=== PATIENT | female | born 1960 | race Caucasian/White ===

== ENCOUNTER 2016-09-10 07:35 | Inpatient (IN) ==
--- NOTE | 2016-09-10 08:02 | PROVIDER DOCUMENTATION ---
HPI-Neurological Disorder - General Stated Complaint: AMS Time Seen by Provider: 09/10/16 07:44 Allergies/Adverse Reactions: Patient Allergies Allergy/AdvReac Type Severity Reaction Status Date / Time promethazine HCl * Allergy Intermediate HALLUCINATI Verified 01/09/16 18:05 [From Phenergan] ONS Home Medications: Home Medication List Medication Instructions Recorded Confirmed Last Taken Type Tizanidine HCl [Zanaflex] 4 mg PO TID 11/20/11 01/09/16 03/06/13 07:00 History Gabapentin [Neurontin] 600 mg PO 4XDAY #0 tablet 12/29/11 01/09/16 03/06/13 07: 00 Rx Metoprolol [Lopressor] 50 mg PO BID #60 tablet 01/25/12 01/09/16 03/06/13 07:00 Rx Multivit,Fe,Ca,FA & Min [Thera M 1 each PO DAILY #0 tablet 01/25/12 01/09/16 07:00 Rx Plus] Ondansetron Odt [Zofran Odt] 8 mg PO Q8H PRN PRN #10 tablet 03/30/12 01/09/16 Rx Clonazepam [Klonopin] 0.5 mg PO BID 02/01/13 01/09/16 03/06/13 07:00 History Cyanocobalamin (Vitamin B-12) 100 mcg PO DAILY 02/01/13 01/09/16 03/06/13 07:00 History [Vitamin B-12] Fentanyl 50 Microgm/Hr Patch 1 each TD Q72H 02/01/13 01/09/16 03/05/13 07:00 History [Duragesic 50 Microgm/Hr Patch] Lactulose 20 gm PO DAILY 02/01/13 01/09/16 03/06/13 07:00 History Lansoprazole [Prevacid] 40 mg PO DAILY 02/01/13 01/09/16 03/06/13 07:00 History Metoclopramide [Reglan] 10 mg PO AC + HS #60 tablet 02/04/13 01/09/16 03/06/13 07:00 Rx Nicotine Patch [Nicoderm Patch] 21 mg TD DAILY #1 patch.td24 02/04/13 01/09/16 03/02/13 09:00 Rx Sucralfate [Carafate] 1 gm PO Q6H #120 tablet 02/04/13 01/09/16 03/06/13 07:00 Rx Ciprofloxacin HCl [Cipro] 500 mg PO BID #20 tablet 03/06/13 01/09/16 Unknown Rx Oxycodone E.r. [Oxycontin] 10 mg PO Q12HR 03/06/13 01/09/16 03/06/13 07:00 History Phenazopyridine [Pyridium] 100 mg PO TID #9 tablet 03/06/13 01/09/16 Unknown Rx - History of Present Illness-Neuro Nature of Presenting Problem: Brought in by EMS, were called because boy friend had been trying unsuccessfully for sev hours to wake her up. EMS reports brief arrousal. She did not respond to needle from blood draw. She did awaken to fingernail pressure. Denies taking anything except just one of her pain pills. Context: reports: found unresponsive by family Character of Altered Mental Status: reports: decreased responsiveness Any recent trauma/injury?: reports: none Cognitive Baseline: alert, oriented x3 Gait Baseline: walks without assistance Similar Symptoms Previously?: No Recently seen or treated by another doctor?: Yes (seen by pain clinic on ~08/28) Review of Systems - Adult - REVIEW OF SYSTEMS - ADULT ROS:: unobtainable per condition Constitutional: reports: no symptoms reported Neurological: reports: see HPI Past History - Adult - PAST MEDICAL HISTORY-ADULT Review of Records: reports: Medications Reviewed (boyfriend does not know current meds "it's in the computer") Cardiovascular: reports: HTN Respiratory: reports: sleep apnea Gastrointestinal: reports: GERD Musculoskeletal: reports: other (chronic pain) - PRIOR SURGERIES/PROCEDURES Surgical/Procedure History: reports: cholecystectomy, other (2 PERFARATED ULCERS ) - IMMUNIZATION STATUS Childhood Immunizations: See Nurse Assessment Flu Vaccine: See Nurse Assessment Physical Exam- Neurological - Physical Exam-Neuro Initial Vital Signs Reviewed: Yes General Appearance: appears well, other (does not repond to needle stick, but does arouse to deep pain) Eye Exam: bilateral eye: PERRL (pupils dialated, but react), EOMI (Random) HENMT: moist mucous membranes, normal ENT inspection Head Injury: no evidence of injury Neck: full range of motion, supple Respiratory: lungs clear, normal breath sounds, no respiratory distress Cardiovascular: regular rate, rhythm, no edema, no murmur Abdominal Exam: non tender, soft Peripheral Pulses: radial (R): 4+, radial (L): 4+ Extremity: non-tender, normal inspection, no pedal edema cobbler sole Exam: normal speech (when she is arroused) Neurologic: other (somulent, but grossly intact when aroused) Integumentary: normal color, normal turgor, warm/dry Psych/Mental Status: other (knows is in hospital, and why, but "that's what he says") Progress - PLAN OF CARE/RESULTS Progress/Plan/Lab Results: Vital Signs - 8 hr 09/10/16 07:46 09/10/16 07:56 09/10/16 08:40 Temperature 97.6 F Pulse Rate 65 59 L 82 Respiratory Rate 12 13 13 Blood Pressure 115/80 115/80 81/65 O2 Sat by Pulse Oximetry 96 99 97 09/10/16 09:01 09/10/16 09:36 Temperature Pulse Rate 63 72 Respiratory Rate 12 14 Blood Pressure 93/76 113/74 O2 Sat by Pulse Oximetry 98 99 Laboratory Results - last 24 hr 09/10/16 09/10/16 09/10/16 07:54 07:54 07:54 WBC 8.18 RBC 4.29 Hgb 14.5 Hct 41.9 MCV 97.7 MCH 33.8 H MCHC 34.6 RDW Std Deviation 13.0 Plt Count 202 MPV 10.9 H Immature Gran % (Auto) 0.7 H Neut % (Auto) 70.5 Lymph % (Auto) 18.9 L [place] % (Auto) 7.1 Eos % (Auto) 2.4 Baso % (Auto) 0.4 Immature Gran # (Auto) 0.06 H Neut # (Auto) 5.76 Lymph # (Auto) 1.55 [place] # (Auto) 0.58 Eos # (Auto) 0.20 Baso # (Auto) 0.03 Sodium 139 Potassium 2.9 L Chloride 98 Carbon Dioxide 29 Anion Gap 12 BUN 16 Creatinine 1.4 H Estimated GFR/1.73 m2 39 BUN/Creatinine Ratio 11 Glucose 105 H Calculated Osmolality 279 Calcium 10.0 Total Bilirubin 0.41 AST 20 ALT 18 Alkaline Phosphatase 88 Total Protein 7.0 Albumin 3.8 Globulin 3.2 Albumin/Globulin Ratio 1.2 Urine Source Urine Color Urine Turbidity Urine pH Ur Specific [place] Urine Protein Ur Glucose (Stick) Ur Ketones (Stick) Urine Blood Urine Nitrite Urine Bilirubin Urobilinogen Dipstick Urine Leukocytes Urine WBC (Auto) Urine RBC (Auto) U Epithel Cells (Auto) Urine Bacteria (Auto) Urine Crystals Small Round Cells Urine Casts Urine Yeast-like Cells Salicylates < 3.00 L Urine Opiates Screen Ur Oxycodone Screen Ur Methadone, Qual Acetaminophen < 1.2 L Ur Barbiturates Screen Ur Phencyclidine Scrn Ur Amphetamines Screen U Benzodiazepines Scrn Urine Cocaine Screen U Cannabinoids Screen Plasma/Serum Ethyl Alc 09/10/16 09/10/16 08:18 08:18 WBC RBC Hgb Hct MCV MCH MCHC RDW Std Deviation Plt Count MPV Immature Gran % (Auto) Neut % (Auto) Lymph % (Auto) [place] % (Auto) Eos % (Auto) Baso % (Auto) Immature Gran # (Auto) Neut # (Auto) Lymph # (Auto) [place] # (Auto) Eos # (Auto) Baso # (Auto) Sodium Potassium Chloride Carbon Dioxide Anion Gap BUN Creatinine Estimated GFR/1.73 m2 BUN/Creatinine Ratio Glucose Calculated Osmolality Calcium Total Bilirubin AST ALT Alkaline Phosphatase Total Protein Albumin Globulin Albumin/Globulin Ratio Urine Source CATH Urine Color YELLOW Urine Turbidity HAZY Urine pH 5.5 Ur Specific [place] 1.025 Urine Protein 50 A Ur Glucose (Stick) NEGATIVE Ur Ketones (Stick) TRACE A Urine Blood NEGATIVE Urine Nitrite NEGATIVE Urine Bilirubin NEGATIVE Urobilinogen Dipstick NORMAL Urine Leukocytes NEGATIVE Urine WBC (Auto) <10 Urine RBC (Auto) <10 U Epithel Cells (Auto) <10 Urine Bacteria (Auto) NEGATIVE Urine Crystals NONE SEEN Small Round Cells NONE SEEN Urine Casts GRANULAR PRESENT Urine Yeast-like Cells NONE SEEN Salicylates Urine Opiates Screen PRESUMPTIVE POSITIVE A Ur Oxycodone Screen NONE DETECTED Ur Methadone, Qual NONE DETECTED Acetaminophen Ur Barbiturates Screen NONE DETECTED Ur Phencyclidine Scrn NONE DETECTED Ur Amphetamines Screen NONE DETECTED U Benzodiazepines Scrn NONE DETECTED Urine Cocaine Screen NONE DETECTED U Cannabinoids Screen NONE DETECTED Plasma/Serum Ethyl Alc Orders Category Date Time Status Cardiac Monitoring DIRECTED Care 09/10/16 08:24 Active Finger Stick Blood Sugar (ED) DIRECTED Care 09/10/16 08:24 Active Saline Loc DIRECTED Care 09/10/16 08:24 Active ACETAMINOPHEN [TDM] Stat Lab 09/10/16 07:54 Completed ALCOHOL BLOOD Stat Lab 09/10/16 07:54 Completed AMMONIA [CHEM] Stat Lab 09/10/16 09:04 Received CBC WITH ELECTRONIC DIFF [HEME] Stat Lab 09/10/16 07:54 Completed COMPREHENSIVE METABOLIC PANEL [CHEM] Stat Lab 09/10/16 07:54 Completed SALICYLATES [TDM] Stat Lab 09/10/16 07:54 Completed URINALYSIS [URINALYSIS] Stat Lab 09/10/16 08:18 Completed URINE DRUG SCREEN Stat Lab 09/10/16 08:18 Completed URINE MANUAL MICROSCOPIC [URINALYSIS] Stat Lab 09/10/16 08:18 Completed 0.9% Sodium Chloride Inj [Ns] 1,000 ml Med 09/10/16 08:57 Discontinued .ROUTE As Directed 0.9% Sodium Chloride Inj [Ns] 1,000 ml Med 09/10/16 09:19 Active IV 200 mls/hr 0.9% Sodium Chloride Inj [Ns] 1,000 ml Med 09/10/16 09:19 Active IV 999 mls/hr Pulse Oximetry Stat Oth 09/10/16 08:24 Active EKG [EKG] Stat Ther 09/10/16 08:24 Ordered Result Diagrams: 09/10/16 07:54 09/10/16 07:54 - REASSESSMENT Reassessment #1 Time Reassessed: 09:57 (pt still asleep) - CONSULTS/PCP/HOSPITALIST Notification #1 *Consult/PCP/Hospitalist*: [place] Time Discussed: 09:59 Consult Disposition: Will see in ED, Admit Departure - Departure Date of Disposition Decision: 09/10/16 Time of Disposition Decision: 09:57 DIAGNOSIS: Overuse of medication, Hypokalemia Disposition: ADMITTED INPATIENT 09 Certified Medical Emergency: Emergent Condition: Fair - Critical Care Note This patient required my direct & personal management of CC.: No
[2016-09-10 08:26] LABS: URINE SOURCE CATH
[2016-09-10 08:33] LABS: MANUAL DIFF NEEDED? NO
[2016-09-10 08:35] LABS: BILIRUBIN URINE NEGATIVE (NEGATIVE); BLOOD URINE NEGATIVE (NEGATIVE); COLOR YELLOW; GLUCOSE URINE NEGATIVE (NEGATIVE); LEUKOCYTES URINE NEGATIVE (NEGATIVE); NITRITE URINE NEGATIVE (NEGATIVE); PH URINE 5.5; PROTEIN URINE 50 mg/dL (NEGATIVE); SP GRAVITY URINE 1.025; TURBIDITY URINE HAZY (CLEAR); URINE MICRO REVIEW NEEDED? YES; UROBILINOGEN URINE NORMAL (NORMAL)
[2016-09-10 08:35] LABS: BASO% 0.4 % (0.0-0.8); EOS% 2.4 % (0.0-10.0); HEMATOCRIT 41.9 % (37.0-47.0); HEMOGLOBIN 14.5 g/dL (12.0-16.0); IMM GRAN# 0.06 X1000 (0.0-0.04); IMM GRAN% 0.7 % (0.0-0.5); LYMPH# 1.55 X1000 (1.2-3.4); LYMPH% 18.9 % (20.5-51.1); MCH 33.8 PG (27-31); MCHC 34.6 g/dL (33-37); MCV 97.7 FL (81-99); MONO# 0.58 X1000 (0.11-0.59); MONO% 7.1 % (1.7-9.3); MPV 10.9 FL (7.4-10.4); NEUT% 70.5 % (42.2-75.2); PLT 202 X1000 (130-400); RBC 4.29 XMIL (4.2-5.4)
[2016-09-10 08:37] LABS: UR EPITHELIAL CELLS <10 /HPF (<10); URINE BACTERIA NEGATIVE /HPF; URINE RBC <10 /HPF (<10); URINE WBC <10 /HPF (<10)
[2016-09-10 08:44] LABS: UR AMPHETAMINES QUAL NONE DETECTED (NONE DETECT); UR BARBITUATES QUAL NONE DETECTED (NONE DETECT); UR BENZODIAZEPIN QUAL NONE DETECTED (NONE DETECT); UR CANNABINOIDS QUAL NONE DETECTED (NONE DETECT); UR COCAINE QUAL NONE DETECTED (NONE DETECT); UR METHADONE QUAL NONE DETECTED (NONE DETECT); UR OPIATES QUAL PRESUMPTIVE POSITIVE (NONE DETECT); UR OXYCODONE QUAL NONE DETECTED (NONE DETECT); UR PCP QUAL NONE DETECTED (NONE DETECT)
[2016-09-10 08:52] LABS: URINE CASTS GRANULAR PRESENT; URINE CRYSTALS NONE SEEN; URINE SMALL ROUND CELLS NONE SEEN
[2016-09-10 08:55] LABS: AGAP 12; ALBUMIN 3.8 g/dL (3.5-5.0); ALKALINE PHOSPHATASE 88 U/L (32-104); BUN 16 mg/dL (8-22); CHLORIDE 98 mmol/L (98-107); COSMO 279; GOT 20 U/L (10-30); GPT 18 U/L (10-36); POTASSIUM 2.9 mmol/L (3.5-5.1); SODIUM 139 mmol/L (136-145); TCO2 29 mmol/L (25-35); TOTAL BILIRUBIN 0.41 mg/dL (0.20-1.00)
[2016-09-10] MEDS ORDERED: NS 2,000 ML ONE (08:57)
[2016-09-10] MEDS ORDERED: NS 1,000 ML IV ONE ×2 (09:19)
[2016-09-10 09:24] LABS: ACETAMINOPHEN < 1.2 ug/mL (10-30)
[2016-09-10] MEDS ORDERED: POTASSIUM CHLORIDE 40 MEQ/SWI 40 MEQ/100 ML IVPB IV ONE (10:02)
[2016-09-10] MEDS: POTASSIUM CHLORIDE 20 MEQ/SWI 20 MEQ/100 ML IVPB IV SCH ×2 (10:15→12:30)
[2016-09-10 11:03] LABS: ALLEN TEST NO; BLOOD TYPE ARTERIAL; DRAW SITE R BRACHIAL; METHB 0.7 % (0.0-1.5); O2(CT) 16.7 mL/dL (15.0-23.0); PCO2(98.6) 39 mmHg (35-45); PO2(98.6) 98 mmHg (60-100); SAMPLE BLOOD; SAO2 99.5 % (95.0-100.0); THB 12.4 g/dL (11.5-17.4); pH(98.6) 7.45 (7.35-7.45)
[2016-09-10 11:04] LABS: MODALITY ROOM AIR
--- NOTE | 2016-09-10 11:40 | Diag Imaging Result Doc PS360 ---
EXAM: HEAD W/O CONTRAST HISTORY: obtunded TECHNIQUE: CT of the head without contrast with reduced dose (clarity.) COMMENT: There are two acquisitions due to patient motion. There is no evidence of bleed or abnormal extra-axial fluid collection. There are some patchy areas of abnormal lucency in the white matter both hemispheres indicating chronic microvascular disease. Considering the artifactual limitations of the current study there has been no appreciable change since 04/17/2010. IMPRESSION: Limited study due to patient motion. No gross abnormality. Electronically signed by Fam Robertson 09/10/2016 11:38 AM
[2016-09-10 12:11] LABS: UR CREAT RANDOM 130.7 mg/dL (11-20)
--- NOTE | 2016-09-10 12:14 | Diag Imaging Result Doc PS360 ---
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 No additional abnormalities are present and considering differences in technique there is been no significant change. IMPRESSION: Stable chest. Electronically signed by Fam Robertson 09/10/2016 12:12 PM
[2016-09-10 12:28] LABS: MAGNESIUM 1.7 mg/dL (1.5-2.7)
[2016-09-10] MEDS: ZOFRAN IV PRN ×2 (15:07→19:37)
[2016-09-10] MEDS: NS 1,000 ML IV SCH ×2 (15:07→19:53)
[2016-09-10] MEDS ORDERED: MORPHINE IV PRN (16:05)
--- NOTE | 2016-09-10 16:08 | HISTORY AND PHYSICAL ---
PRIMARY CARE PHYSICIAN: JAYESH Dc CHIEF COMPLAINT: Altered mental status. HISTORY OF PRESENT ILLNESS: Ms. Pete is a 56-year-old female with a history of chronic pain, longstanding narcotic therapy, questionable cirrhosis of the liver per report, nicotine dependence, hypertension, GERD, peptic ulcer disease, who presents from home after being found obtunded by her . The patient is unable to give a history right now secondary to neuro status. Apparently, she has been in her normal state of health. She was started on a new muscle relaxer earlier this week by her pain doctor. She apparently took some medication around 1 or 2 o'clock this morning and when her woke up and tried to wake her up, he could not. She was somnolent and minimally responsive. He then called an ambulance which brought her to our ER. In the ER, she had multiple labs and diagnostics done. These did not show anything acute. Head CT while limited due to artifact did not show anything acute. On physical exam, the patient is minimally responsive to painful stimuli. Again, she has been in her normal state of health with the exception of starting a new medication for back pain. Her vitals are stable, but given her mental status, we are going to have to put her in the unit for observation. PAST MEDICAL HISTORY: 1. COPD. 2. Liver disease, specificity unknown. 3. Nicotine dependence. 4. Chronic back pain, on long-standing narcotic therapy. 5. Anxiety and depression. 6. History of gastric outlet obstruction. 7. Peptic ulcer disease. SURGICAL HISTORY: She has had a partial gastrectomy secondary to gastric outlet obstruction and adhesions. She has had a cholecystectomy. FAMILY HISTORY: Noncontributory. SOCIAL HISTORY: Patient is not legally , but she and her boyfriend at the bedside have been together for 15 years. She has 2 children from a previous relationship. She smokes around half a pack a day. She denies that she drinks any alcohol or uses illicit substances or abuses her medications. ALLERGIES: Promethazine. HOME MEDICATIONS: Norvasc 5 mg daily, baclofen 10 mg b.i.d. clonidine 0.1 mg daily, Neurontin 600 mg p.o. 4 times a day, [place] as needed for pain, lactulose 20 g p.o. daily, Prilosec 40 mg daily, Zofran 8 mg every 8 hours as needed, valsartan/hydrochlorothiazide 1 p.o. daily. REVIEW OF SYSTEMS: Unable to obtain. PHYSICAL EXAMINATION: VITAL SIGNS: Blood pressure is 105/74, heart rate 64, respiratory rate 96, O2 saturation 98% on room air, respiratory rate 18, temperature is 97.6 degrees. GENERAL: This is a chronically ill and disheveled-appearing, 56-year-old female, lying in hospital bed obtunded. NEUROLOGIC: The patient is minimally responsive to painful stimulus and overall she is appended. HEENT: Head is atraumatic and normocephalic. Her pupils are equal and round, but sluggish to light response. Oral mucosa is a bit dry. Trachea is midline. No JVD. CHEST: Clear to auscultation bilaterally. CARDIOVASCULAR: Regular S1-S2 is noted. No murmurs. GI: Soft, nondistended. Bowel sounds are positive. EXTREMITIES: Without edema, clubbing or cyanosis. Pulses are palpable bilaterally. DIAGNOSTIC DATA: Head CT, motion artifact, nothing acute. WBC 8.18. Hemoglobin 14.5, hematocrit 41.9, platelet count is 202,000. ABG on room air, pH 7.45, CO2 39, O2 98, bicarb 27.2, base excess is 3, lactate 0.4. Sodium 139, potassium 2.9, chloride 98, CO2 29, anion gap 12, BUN 16, creatinine 1.4, glucose 105. LFTs within normal limits. Albumin 3.8. TSH 0.87. Urine does not show anything acute. Toxicology is positive for opiates. Everything else is negative. ASSESSMENT AND PLAN: 1. Toxic encephalopathy: This is likely secondary to medication effect. Head CT does not show anything acute. There is no objective data to point to any specific metabolic derangement. Given her history of chronic pain medication use and new muscle relaxer started earlier this week, this is likely the cause of her encephalopathy. However, given her somnolence, we are going to need to put her in the unit to monitor her airway closely. We are going to check a chest x-ray and check labs in the morning. If she wakes up and all tests are negative, by tomorrow, she likely be able to go home. 2. Hypokalemia: We will check a magnesium and phosphorus and replace appropriately. 3. Acute kidney injury: Likely prerenal on top of angiotensin receptor rubina use. We will check urine studies and hydrate. 4. Chronic obstructive pulmonary disease: She does not seem to be in exacerbation, but we are going to check a chest x-ray. Add p.r.n. nebulizers. 5. Hypertension we will treat with p.r.n. medications as needed. 6. Nicotine dependence: We have added a nicotine patch and we will speak to the patient more about nicotine cessation once she is more alert. 7. Chronic liver disease: Likely cirrhosis, but we do not have this diagnosis for sure. We are going to hold off on her lactulose for now. Her ammonia is stable. 8. Deep venous thrombosis prophylaxis with Lovenox. Further recommendations to follow. Dictated by JAYESH Oliva for Adam Nina MD cc: JAYESH Oliva MD
[2016-09-10] MEDS ORDERED: SODIUM CHLORIDE 0.9% INJ SCH (16:15)
[2016-09-10] MEDS: PROTONIX IV SCH (17:02)
[2016-09-10] MEDS: CARAFATE LIQUID PO SCH (20:10)
[2016-09-11] MEDS: ZOFRAN IV PRN (01:42)
[2016-09-11] MEDS: CARAFATE LIQUID PO SCH ×5 (01:44→20:46)
[2016-09-11] MEDS: NS 1,000 ML IV SCH ×3 (03:45→20:38)
--- NOTE | 2016-09-11 05:42 | EKG Report ---
Test Performed on : 09/10/2016 07:33:15 AM Test Reason : Suspected Overdose Blood Pressure : / mmHG Vent. Rate : 056 BPM Atrial Rate : 056 BPM P-R Int : 198 ms QRS Dur : 102 ms QT Int : 488 ms P-R-T Axes : 063 020 057 degrees QTc Int : 470 ms Sinus bradycardia. with sinus arrhythmia. Otherwise normal ECG When compared with ECG of 09-JAN-2016 22:20, Vent. rate has decreased BY 29 BPM Unconfirmed Result
[2016-09-11 07:24] LABS: HEMATOCRIT 42.2 % (37.0-47.0); HEMOGLOBIN 14.6 g/dL (12.0-16.0); MCH 33.1 PG (27-31); MCHC 34.6 g/dL (33-37); MCV 95.7 FL (81-99); MPV 11.3 FL (7.4-10.4); RBC 4.41 XMIL (4.2-5.4)
[2016-09-11 07:51] LABS: AGAP 17; BUN 7 mg/dL (8-22); CALCIUM 8.9 mg/dL (8.8-10.2); CHLORIDE 100 mmol/L (98-107); COSMO 277; POTASSIUM 3.1 mmol/L (3.5-5.1); SODIUM 140 mmol/L (136-145); TCO2 23 mmol/L (25-35)
--- NOTE | 2016-09-11 13:09 | PROGRESS NOTE ---
DATE: 09/11/2016 SUBJECTIVE: Today, Ms. Pete refers to be doing fine. She is very, very paranoid. Any time you ask her questions she will ask you why you are asking her that and she will be giving different answers for the questions. OBJECTIVE: Vital signs: Blood pressure is 124/97, pulse is 87, respirations 18 , temperature 98.5 degrees. General: Ms. Pete is a 56-year-old female. She is lying in bed. She is not in any distress. HEENT: Mucosa is pink and moist. Anicteric. Acyanotic. Neck: Supple. Chest: Clear. Cardiovascular: Regular rate and rhythm. Abdomen: Soft. Extremities: No pedal edema. BOTTLE TESTER: Patient is awake and alert. Follows commands. Psychiatric: Patient has a very flat affect. I think talks more than she has been asked and she gives multiple answers at different times and most remarkably she is extremely paranoid, asking why you are asking her questions. LABORATORY DATA: WBC is 9.72, hemoglobin is 14.6, platelet count of , sodium is 141, potassium is 3.1, chloride is 100, bicarbonate is 23. Her folic acid is 6.2 which is remarkably low. B12 is more than 2000. Patient's toxicology result was positive for opioids. ASSESSMENT: 1. Altered mental status on presentation due toxic encephalopathy from medication side effects. 2. Nicotine dependence. 3. Folic acid deficiency. We will replace this. 4. History of chronic obstructive pulmonary disease not in exacerbation. 5. History of depression and anxiety. 6. Paranoid features. Unsure if patient has genuine underlying psychiatric disorder or withdrawal from some of her meds. Will restart some of her meds and consult Abelino Jacobson to evaluate the patient. PLAN: We are going to discontinue the Gastelum catheter and start the patient on some regular diet, transfer her from the ICU to a regular room. Get Abelino Jacobson to evaluate her. Replace the folate and get her ready for discharge soon. cc: Adam Nina MD MTDD
[2016-09-11] MEDS ORDERED: GEODON IM ONE (13:32)
[2016-09-11] MEDS ORDERED: STERILE WATER INJ. INJ ONE (13:32)
[2016-09-11] MEDS: MORPHINE IV PRN (13:52)
[2016-09-11] MEDS: PROTONIX IV SCH (16:13)
[2016-09-11] MEDS ORDERED: NORCO-7.5 PO PRN (18:42)
--- NOTE | 2016-09-11 19:13 | PROGRESS NOTE ---
DATE: 09/11/2016 I spoke with the partner of Ms. Pete this morning, and according to him, Ms. Pete has been to multiple pain clinics and she is very consistent with her medications. She does not seem to be taking any over dose however she was just recently given baclofen and since she took that she felt that altered mentation. I think some of it could be just a combination of all the sedatives and the muscle relaxant that she took. I have therefore withheld the and started her on most of her medications so that we can observe her 24 hours before we discharge her. cc: Adam Nina MD
[2016-09-11] MEDS: CATAPRES PO SCH ×2 (20:35→20:48)
[2016-09-11] MEDS: DIOVAN PO SCH (20:35)
[2016-09-11] MEDS: FOLIC ACID PO SCH (20:35)
[2016-09-12] MEDS: CARAFATE LIQUID PO SCH ×4 (04:55→20:30)
[2016-09-12 06:53] LABS: HEMATOCRIT 38.6 % (37.0-47.0); HEMOGLOBIN 13.2 g/dL (12.0-16.0); MCH 33.4 PG (27-31); MCHC 34.2 g/dL (33-37); MCV 97.7 FL (81-99); MPV 10.8 FL (7.4-10.4); RBC 3.95 XMIL (4.2-5.4)
[2016-09-12] MEDS: NS 1,000 ML IV SCH ×3 (06:54→13:43)
[2016-09-12] MEDS: PRILOSEC PO SCH (06:54)
[2016-09-12 07:33] LABS: AGAP 20; BUN 6 mg/dL (8-22); CALCIUM 8.4 mg/dL (8.8-10.2); CHLORIDE 106 mmol/L (98-107); COSMO 284; POTASSIUM 2.7 mmol/L (3.5-5.1); SODIUM 144 mmol/L (136-145); TCO2 18 mmol/L (25-35)
[2016-09-12] MEDS ORDERED: HYDROCHLOROTHIAZIDE PO SCH (09:00)
[2016-09-12] MEDS: CATAPRES PO SCH (10:30)
[2016-09-12] MEDS: NORVASC PO SCH (10:30)
[2016-09-12] MEDS: NEURONTIN PO SCH ×3 (10:33→16:06)
[2016-09-12] MEDS: DIOVAN PO SCH (10:34)
[2016-09-12] MEDS: FOLIC ACID PO SCH ×2 (10:34→20:30)
[2016-09-12] MEDS ORDERED: KLOR-CON PO ONE (13:12)
[2016-09-12] MEDS ORDERED: MAGNESIUM SULFATE 2 GM/S.W.I. 2 GM/50 ML IVPB IV ONE (13:12)
--- NOTE | 2016-09-12 13:58 | PROGRESS NOTE ---
DATE: 09/12/2016 SUBJECTIVE: Patient has no focal complaints. OBJECTIVE: Vital signs: Blood pressure 138/97, heart rate 90, respiratory rate 20, temperature 98.6 degrees, 100% on room air. Cardiovascular: Regular rate and rhythm. Pulmonary: Bilateral breath sounds. Clear to auscultation. GI: Soft, nontender, nondistended. Bowel sounds are positive. LABORATORY: CBC was normal today. Chemistry: Potassium 2.7. Magnesium of 1.4. PROBLEM LIST: 1. Hypokalemia. Hypomagnesemia. We will supplement and follow. She is refusing to take any p.o. medicines. She is still having some issues with paranoia. I am not sure if there may not be a primary psychiatric issue going on. 2. Chronic obstructive pulmonary disease appears to be compensated. Abelino Jacobson was consulted, but she refused the consult at [place]. Clinically, the patient still seems somewhat agitated and she is refusing her medications. I do not know how well she is getting up and around. We need to get a better assessment of that, get physical therapy to evaluate her. 3. Disposition: Likely home when her electrolytes are stabilized, hopefully tomorrow. cc: Kyle Liu MD
[2016-09-12] MEDS: POTASSIUM CHLORIDE 20 MEQ/SWI 20 MEQ/100 ML IVPB IV SCH ×2 (14:25→17:39)
[2016-09-12] MEDS: MORPHINE IV PRN (20:28)
[2016-09-13] MEDS: MORPHINE IV PRN ×4 (00:14→14:22)
[2016-09-13] MEDS: CARAFATE LIQUID PO SCH ×3 (04:38→14:22)
[2016-09-13] MEDS: NS 1,000 ML IV SCH (05:05)
[2016-09-13 06:34] LABS: HEMATOCRIT 35.9 % (37.0-47.0); HEMOGLOBIN 12.6 g/dL (12.0-16.0); MCH 32.8 PG (27-31); MCHC 35.1 g/dL (33-37); MCV 93.5 FL (81-99); MPV 10.6 FL (7.4-10.4); RBC 3.84 XMIL (4.2-5.4)
[2016-09-13 07:19] LABS: AGAP 15; BUN 4 mg/dL (8-22); CHLORIDE 107 mmol/L (98-107); COSMO 276; POTASSIUM 3.4 mmol/L (3.5-5.1); SODIUM 140 mmol/L (136-145); TCO2 18 mmol/L (25-35)
[2016-09-13] MEDS: FOLIC ACID PO SCH (09:50)
[2016-09-13] MEDS: DIOVAN PO SCH (09:50)
[2016-09-13] MEDS: CATAPRES PO SCH (09:50)
[2016-09-13] MEDS: NORVASC PO SCH (09:50)
[2016-09-13] MEDS: NEURONTIN PO SCH ×2 (09:51→14:22)
[2016-09-13] MEDS: PRILOSEC PO SCH (09:53)
[2016-09-13 14:38] VITALS: BP 162/97
--- NOTE | 2016-09-13 16:42 | DISCHARGE SUMMARY ---
ADMISSION DATE: 09/10/2016 DISCHARGE DATE: 09/13/2016 ADMISSION DIAGNOSES: 1. Toxic encephalopathy, resolved. 2. Hypokalemia, resolved. 3. Acute kidney injury, resolved. 4. Chronic obstructive pulmonary disease, stable. 5. Hypertension, stable. 6. Nicotine dependence. Aware. 7. Chronic liver disease. CONSULTATION: None. PROCEDURES: Head CT shows no gross abnormality. Chest x-ray showed stable chest. HOSPITAL COURSE: This is a 56-year-old female with history of COPD, longstanding narcotic therapy, questionable cirrhosis of the liver as per report who presents from home after being found obtunded by her . Patient unable to provide any history. Patient admitted to the hospital for further evaluation and treatment. Also we found out some electrolyte derangement that were corrected. Day by day the patient was getting more awake. On the day of discharge, patient was completely alert and awake. All the electrolytes have been resolved and the patient requests to be sent home today. I do not see any reason why we have to keep this patient here in the hospital. Patient is going to be discharged in stable condition. The JAMES that we have seen in the labs has resolved completely. DISCHARGE PHYSICAL EXAMINATION: Vitals: Temperature 98.1 degrees, heart rate 88, respiratory rate 16, blood pressure 162/97 and O2 saturation 99% on room air. General examination: This is a chronically ill-looking, and disheveled appearing 56-year-old female lying in bed, in no acute distress. HEENT: Head is normocephalic, atraumatic. Anicteric sclerae and pale conjunctivae. Mucous membranes moist. Neck: Supple. No JVD noted. No carotid bruits. No lymphadenopathy. No thyromegaly. Cardiovascular exam: S1, S2 heard. No murmurs, gallops, or rubs. Regular rate and rhythm. Respiratory: Clear bilaterally to auscultation. No work of breathing or using accessory muscles. Abdomen: Soft, nontender to palpation. Bowel sounds present. No organomegaly. Extremities: No cyanosis or edema. Peripheral pulses present in both legs. Neurological: Patient alert and oriented x3. Able to move her extremities. Cranial nerves 2-12 grossly normal. DISCHARGE DISPOSITION: To home to self-care. MEDICATIONS: 1. Valsartan 20 mg 1 tablet p.o. daily. 2. Zofran 8 mg p.o. every 8 as needed. 3. Omeprazole 40 mg 1 tablet p.o. daily. 4. Gabapentin 600 mg 1 tablet p.o. 2 times per day. 5. Amlodipine 5 mg 1 tablet p.o. daily. 6. [place] 7.5 mg 1 tablet p.o. every 8 hours as needed. 7. Clonidine 0.1 mg 1 tablet p.o. daily. 8. Baclofen 10 mg p.o. q.12 hours. FOLLOW UP: With his primary care physician, Dr. Gulshan Nagel in 1 week. cc: Boone Mejia MD
== END 2016-09-13 15:29 | disposition home or self-care (01) ==
LOC: ED 07:35 → EDIPHOLD 07:35 → SUATTDRO 10:55 → OBSVTOIN 10:55 → ICU 14:21 → 3N 09-11 16:33
PROVIDERS: ATTEND Internal Medicine

== ENCOUNTER 2016-11-22 13:08 | Inpatient (IN) ==
[2016-11-22 13:46] LABS: MANUAL DIFF NEEDED? NO
[2016-11-22] MEDS ORDERED: ZOFRAN IV ONE (13:48)
[2016-11-22] MEDS ORDERED: NS 1,000 ML IV ONE (13:48)
[2016-11-22 13:51] LABS: BASO% 0.5 % (0.0-0.8); EOS# 0.14 X1000 (0.0-0.7); EOS% 1.7 % (0.0-10.0); HEMATOCRIT 42.6 % (37.0-47.0); HEMOGLOBIN 13.9 g/dL (12.0-16.0); IMM GRAN# 0.05 X1000 (0.0-0.04); IMM GRAN% 0.6 % (0.0-0.5); LYMPH# 1.32 X1000 (1.2-3.4); LYMPH% 16.4 % (20.5-51.1); MCH 32.8 PG (27-31); MCHC 32.6 g/dL (33-37); MCV 100.5 FL (81-99); MONO# 0.51 X1000 (0.11-0.59); MONO% 6.3 % (1.7-9.3); MPV 10.3 FL (7.4-10.4); NEUT% 74.5 % (42.2-75.2); PLT 248 X1000 (130-400); RBC 4.24 XMIL (4.2-5.4)
[2016-11-22 14:02] LABS: BLOOD TYPE ARTERIAL; DRAW SITE L BRACHIAL; METHB 0.4 % (0.0-1.5); O2(CT) 16.3 mL/dL (15.0-23.0); PCO2(98.6) 38 mmHg (35-45); PO2(98.6) 130 mmHg (60-100); SAMPLE BLOOD; SAO2 100.8 % (95.0-100.0); THB 12.2 g/dL (11.5-17.4); pH(98.6) 7.43 (7.35-7.45)
[2016-11-22 14:05] LABS: ALLEN TEST NO; MODALITY CANNULA
[2016-11-22 14:14] LABS: INR 0.94 (0.86-1.15); PROTIME 13.3 Seconds (12.1-15.5)
[2016-11-22 14:15] LABS: PTT PL 30.3 Seconds (22.6-43.9)
[2016-11-22 14:19] LABS: ALBUMIN 3.2 g/dL (3.5-5.0); CALCIUM 8.5 mg/dL (8.8-10.2); POTASSIUM 3.5 mmol/L (3.5-5.1); TOTAL BILIRUBIN 0.3 mg/dL (0.20-1.00); TOTAL PROTEIN 6.3 g/dL (6.3-8.3)
[2016-11-22 15:38] LABS: BILIRUBIN URINE NEGATIVE (NEGATIVE); BLOOD URINE NEGATIVE (NEGATIVE); GLUCOSE URINE NEGATIVE (NEGATIVE); LEUKOCYTES URINE 1+ (NEGATIVE); NITRITE URINE NEGATIVE (NEGATIVE); PROTEIN URINE TRACE mg/dL (NEGATIVE); UROBILINOGEN URINE NORMAL
[2016-11-22 15:39] LABS: CLARITY CLEAR (CLEAR); COLOR YELLOW
[2016-11-22] MEDS ORDERED: ROCEPHIN 1 GM in NS 50 ML IV ONE (15:44)
[2016-11-22 15:49] LABS: URINE CAST NONE SEEN /LPF; URINE CRYSTAL NONE SEEN /HPF; URINE CULTURE PL NEEDED? YES; URINE EPITHELIAL CELLS <10 /HPF (<10); URINE RBC <10 /HPF (<10); URINE SOURCE CATH
[2016-11-22 16:26] LABS: ACETAMINOPHEN < 1.2 ug/mL (10-30)
[2016-11-22] MEDS ORDERED: NS 50 ML ONE (16:28)
[2016-11-22] MEDS ORDERED: PROTONIX IV SCH (17:28)
[2016-11-22] MEDS: NS 1,000 ML IV SCH (18:21)
[2016-11-22] MEDS: LOVENOX SUBQ SCH (18:22)
[2016-11-22] MEDS: SODIUM CHLORIDE 0.9% INJ SCH (18:22)
[2016-11-22 19:38] LABS: UR AMPHETAMINES QUAL NONE DETECTED (NONE DETECT); UR BARBITUATES QUAL NONE DETECTED (NONE DETECT); UR BENZODIAZEPIN QUAL NONE DETECTED (NONE DETECT); UR COCAINE QUAL NONE DETECTED (NONE DETECT); UR MDMA QUAL NONE DETECTED (NONE DETECT); UR METHADONE QUAL NONE DETECTED (NONE DETECT)
[2016-11-22 19:39] LABS: UR CANNABINOIDS QUAL NONE DETECTED (NONE DETECT); UR METHAMPHETAMINE QUAL NONE DETECTED (NONE DETECT); UR OPIATES QUAL PRESUMPTIVE POSITIVE (NONE DETECT); UR OXYCODONE QUAL NONE DETECTED (NONE DETECT); UR PCP QUAL PRESUMPTIVE POSITIVE (NONE DETECT); UR TCA QUAL PRESUMPTIVE POSITIVE (NONE DETECT)
[2016-11-23] MEDS: NS 1,000 ML IV SCH (02:46)
[2016-11-23] MEDS: APRESOLINE IV PRN (04:10)
[2016-11-23 06:04] LABS: MANUAL DIFF NEEDED? NO
[2016-11-23 06:12] LABS: BASO% 0.3 % (0.0-0.8); EOS# 0.14 X1000 (0.0-0.7); EOS% 2.4 % (0.0-10.0); HEMATOCRIT 40.1 % (37.0-47.0); HEMOGLOBIN 12.9 g/dL (12.0-16.0); IMM GRAN# 0.04 X1000 (0.0-0.04); IMM GRAN% 0.7 % (0.0-0.5); LYMPH# 0.92 X1000 (1.2-3.4); LYMPH% 15.8 % (20.5-51.1); MCH 32.5 PG (27-31); MCHC 32.2 g/dL (33-37); MONO# 0.36 X1000 (0.11-0.59); MONO% 6.2 % (1.7-9.3); MPV 10.5 FL (7.4-10.4); NEUT% 74.6 % (42.2-75.2); PLT 212 X1000 (130-400); RBC 3.97 XMIL (4.2-5.4)
[2016-11-23 06:39] LABS: AGAP 11; ALBUMIN 2.4 g/dL (3.5-5.0); ALKALINE PHOSPHATASE 169 U/L (32-104); BUN 8 mg/dL (8-22); CALCIUM 7.9 mg/dL (8.8-10.2); CHLORIDE 109 mmol/L (98-107); COSMO 283; GOT 42 U/L (10-30); GPT 27 U/L (10-36); POTASSIUM 2.8 mmol/L (3.5-5.1); SODIUM 144 mmol/L (136-145); TCO2 24 mmol/L (25-35); TOTAL PROTEIN 5.6 g/dL (6.3-8.3)
[2016-11-23] MEDS: PROTONIX IV SCH ×2 (07:35→16:22)
[2016-11-23] MEDS ORDERED: POTASSIUM CHLORIDE 40 MEQ/SWI 40 MEQ/100 ML IVPB IV ONE (07:46)
[2016-11-23] MEDS ORDERED: MORPHINE IV ONE (07:48)
[2016-11-23] MEDS ORDERED: DILAUDID ONE (07:54)
[2016-11-23] MEDS ORDERED: DILAUDID IV ONE ×2 (07:59→14:10)
[2016-11-23] MEDS: D5 NS 1,000 ML IV SCH ×3 (09:39→18:19)
[2016-11-23] MEDS: NEURONTIN PO PRN (13:37)
[2016-11-23] MEDS: LACTULOSE PO SCH (13:38)
[2016-11-23] MEDS: DILAUDID IV PRN ×5 (13:38→23:16)
[2016-11-23] MEDS: LIORESAL PO SCH ×2 (13:38→13:52)
[2016-11-23] MEDS: SODIUM CHLORIDE 0.9% INJ SCH (16:22)
[2016-11-23] MEDS: LOVENOX SUBQ SCH (16:22)
[2016-11-23] MEDS ORDERED: BLISTEX MEDICATED BERRY LIP BALM TOP PRN (16:22)
[2016-11-24] MEDS: ZOFRAN IV PRN (00:46)
[2016-11-24] MEDS: LIORESAL PO SCH ×2 (00:56→12:18)
[2016-11-24] MEDS: DILAUDID IV PRN ×2 (01:48→04:50)
[2016-11-24] MEDS: PROTONIX IV SCH ×2 (04:19→18:18)
[2016-11-24] MEDS: D5 NS 1,000 ML IV SCH ×2 (04:19→15:21)
[2016-11-24 05:31] LABS: MANUAL DIFF NEEDED? NO
[2016-11-24 05:36] LABS: BASO% 0.4 % (0.0-0.8); EOS# 0.08 X1000 (0.0-0.7); EOS% 1.6 % (0.0-10.0); HEMATOCRIT 38.7 % (37.0-47.0); HEMOGLOBIN 12.6 g/dL (12.0-16.0); IMM GRAN# 0.03 X1000 (0.0-0.04); IMM GRAN% 0.6 % (0.0-0.5); LYMPH# 1.24 X1000 (1.2-3.4); LYMPH% 24.1 % (20.5-51.1); MCH 32.4 PG (27-31); MCHC 32.6 g/dL (33-37); MCV 99.5 FL (81-99); MONO# 0.35 X1000 (0.11-0.59); MONO% 6.8 % (1.7-9.3); MPV 10.2 FL (7.4-10.4); NEUT% 66.5 % (42.2-75.2); PLT 250 X1000 (130-400); RBC 3.89 XMIL (4.2-5.4)
[2016-11-24 06:06] LABS: AGAP 10; ALBUMIN 2.6 g/dL (3.5-5.0); ALKALINE PHOSPHATASE 198 U/L (32-104); BUN 5 mg/dL (8-22); CALCIUM 7.7 mg/dL (8.8-10.2); CHLORIDE 111 mmol/L (98-107); COSMO 280; GOT 156 U/L (10-30); GPT 50 U/L (10-36); POTASSIUM 3.4 mmol/L (3.5-5.1); SODIUM 142 mmol/L (136-145); TCO2 21 mmol/L (25-35); TOTAL PROTEIN 5.1 g/dL (6.3-8.3)
[2016-11-24] MEDS: LACTULOSE PO SCH ×3 (10:11→20:47)
[2016-11-24] MEDS: NICODERM PATCH TD SCH (10:22)
[2016-11-24] MEDS ORDERED: KLOR-CON PO ONE (10:42)
[2016-11-24] MEDS ORDERED: ROCEPHIN 1 GM in NS 50 ML IV SCH (11:00)
[2016-11-24] MEDS: THERA M PLUS PO SCH (12:18)
[2016-11-24] MEDS: VITAMIN B-1 PO SCH (12:20)
[2016-11-24] MEDS: LOVENOX SUBQ SCH (18:18)
[2016-11-24] MEDS: APRESOLINE IV PRN (18:21)
[2016-11-24] MEDS: LIPITOR PO SCH (20:27)
[2016-11-25] MEDS: D5 NS 1,000 ML IV SCH ×3 (01:00→21:34)
[2016-11-25] MEDS: LIORESAL PO SCH ×2 (02:20→12:24)
[2016-11-25] MEDS: ZOFRAN IV PRN (02:26)
[2016-11-25] MEDS: APRESOLINE IV PRN (02:27)
[2016-11-25] MEDS: PROTONIX IV SCH ×2 (06:11→16:22)
[2016-11-25] MEDS: DILAUDID IV PRN (06:32)
[2016-11-25 07:20] LABS: AGAP 15; ALBUMIN 2.7 g/dL (3.5-5.0); ALKALINE PHOSPHATASE 199 U/L (32-104); BUN 2 mg/dL (8-22); CALCIUM 7.5 mg/dL (8.8-10.2); CHLORIDE 103 mmol/L (98-107); COSMO 268; GOT 99 U/L (10-30); GPT 47 U/L (10-36); POTASSIUM 3.6 mmol/L (3.5-5.1); SODIUM 136 mmol/L (136-145); TCO2 18 mmol/L (25-35); TOTAL PROTEIN 5.5 g/dL (6.3-8.3)
[2016-11-25] MEDS: LEVAQUIN PO SCH (08:18)
[2016-11-25] MEDS: THERA M PLUS PO SCH (08:19)
[2016-11-25] MEDS: NORCO-7.5 PO PRN ×2 (08:19→15:59)
[2016-11-25] MEDS: ASPIRIN PO SCH (08:19)
[2016-11-25] MEDS: LACTULOSE PO SCH ×2 (08:20→21:33)
[2016-11-25] MEDS: VITAMIN B-1 PO SCH (08:20)
[2016-11-25] MEDS: NICODERM PATCH TD SCH (08:20)
[2016-11-25] MEDS: LOVENOX SUBQ SCH (15:59)
[2016-11-25] MEDS: SODIUM CHLORIDE 0.9% INJ SCH (16:22)
[2016-11-25] MEDS: LIPITOR PO SCH (21:33)
[2016-11-26] MEDS: NORCO-7.5 PO PRN ×2 (00:33→08:28)
[2016-11-26] MEDS: LIORESAL PO SCH ×2 (02:07→14:01)
[2016-11-26] MEDS: PROTONIX IV SCH (04:28)
[2016-11-26] MEDS: D5 NS 1,000 ML IV SCH (06:46)
[2016-11-26] MEDS: LACTULOSE PO SCH (08:15)
[2016-11-26] MEDS: NICODERM PATCH TD SCH (08:15)
[2016-11-26] MEDS: THERA M PLUS PO SCH (08:15)
[2016-11-26] MEDS: VITAMIN B-1 PO SCH (08:15)
[2016-11-26] MEDS: LEVAQUIN PO SCH (08:15)
[2016-11-26] MEDS: ASPIRIN PO SCH (08:15)
[2016-11-26] MEDS ORDERED: CATAPRES PO SCH (09:00)
[2016-11-26] MEDS ORDERED: NON-FORMULARY MED (Omeprazole [Prilosec] 40 MG) PO SCH (09:00)
[2016-11-26] MEDS ORDERED: NORVASC PO SCH (09:00)
[2016-11-26 12:05] VITALS: BP 142/105
[2016-11-26] MEDS: APRESOLINE IV PRN (12:09)
[2016-11-26] MEDS: NEURONTIN PO PRN (14:01)
[2016-11-26] MEDS: DILAUDID IV PRN (14:02)
[2016-11-28 10:53] LABS: HEPATITIS PROFILE ACUTE SEE COMMENTS
== END 2016-11-26 15:30 | disposition home or self-care (01) ==
LOC: P.ED 13:08 → P.ICU 16:29 → SUATTDRO 16:29 → P.MEDSURG 11-25 18:36
PROVIDERS: ATTEND Internal Medicine

== ENCOUNTER 2016-12-21 04:42 | Inpatient (IN) ==
[2016-12-21 05:13] LABS: BE 4.6 mmoll (-3.0-3.0); BLOOD TYPE ARTERIAL; DRAW SITE R RADIAL; METHB 1.2 % (0.0-1.5); O2(CT) 18.8 mL/dL (15.0-23.0); PO2(98.6) 72 mmHg (60-100); SAMPLE BLOOD; SAO2 96.8 % (95.0-100.0); THB 14.5 g/dL (11.5-17.4); pH(98.6) 7.39 (7.35-7.45)
[2016-12-21 05:23] LABS: UR AMPHETAMINES QUAL NONE DETECTED (NONE DETECT); UR BARBITUATES QUAL NONE DETECTED (NONE DETECT); UR BENZODIAZEPIN QUAL NONE DETECTED (NONE DETECT); UR CANNABINOIDS QUAL NONE DETECTED (NONE DETECT); UR COCAINE QUAL NONE DETECTED (NONE DETECT); UR MDMA QUAL NONE DETECTED (NONE DETECT); UR METHADONE QUAL NONE DETECTED (NONE DETECT); UR METHAMPHETAMINE QUAL NONE DETECTED (NONE DETECT); UR OPIATES QUAL PRESUMPTIVE POSITIVE (NONE DETECT); UR OXYCODONE QUAL NONE DETECTED (NONE DETECT); UR PCP QUAL NONE DETECTED (NONE DETECT); UR TCA QUAL PRESUMPTIVE POSITIVE (NONE DETECT)
[2016-12-21 05:27] LABS: PCO2(98.6) 51 mmHg (35-45)
[2016-12-21 05:28] LABS: ALLEN TEST YES; MODALITY ROOM AIR
[2016-12-21 05:29] LABS: URINE CULTURE PL NEEDED? NO
[2016-12-21 05:30] LABS: BILIRUBIN URINE NEGATIVE (NEGATIVE); BLOOD URINE NEGATIVE (NEGATIVE); CLARITY CLEAR (CLEAR); COLOR YELLOW; GLUCOSE URINE NEGATIVE (NEGATIVE); LEUKOCYTES URINE NEGATIVE (NEGATIVE); NITRITE URINE NEGATIVE (NEGATIVE); PROTEIN URINE NEGATIVE (NEGATIVE); SP GRAVITY URINE 1.015; URINE EPITHELIAL CELLS <10 /HPF (<10); URINE RBC <10 /HPF (<10); URINE SOURCE CATH; URINE WBC <10 /HPF (<10); UROBILINOGEN URINE NORMAL
[2016-12-21] MEDS ORDERED: NARCAN ONE (05:39)
[2016-12-21] MEDS ORDERED: NARCAN IV ONE ×2 (05:40→05:47)
[2016-12-21] MEDS ORDERED: ROMAZICON IV ONE (05:40)
[2016-12-21] MEDS ORDERED: ROMAZICON ONE (05:41)
[2016-12-21 06:01] LABS: MANUAL DIFF NEEDED? NO
[2016-12-21 06:03] LABS: BASO% 0.5 % (0.0-0.8); EOS# 0.03 X1000 (0.0-0.7); EOS% 0.4 % (0.0-10.0); HEMATOCRIT 42.2 % (37.0-47.0); HEMOGLOBIN 13.8 g/dL (12.0-16.0); IMM GRAN# 0.03 X1000 (0.0-0.04); IMM GRAN% 0.4 % (0.0-0.5); LYMPH# 1.61 X1000 (1.2-3.4); LYMPH% 18.8 % (20.5-51.1); MCH 33.9 PG (27-31); MCHC 32.7 g/dL (33-37); MCV 103.7 FL (81-99); MONO# 0.72 X1000 (0.11-0.59); MONO% 8.4 % (1.7-9.3); MPV 10.2 FL (7.4-10.4); NEUT% 71.5 % (42.2-75.2); PLT 197 X1000 (130-400); RBC 4.07 XMIL (4.2-5.4)
[2016-12-21 06:35] LABS: AGAP 16; ALBUMIN 2.9 g/dL (3.5-5.0); ALKALINE PHOSPHATASE 100 U/L (32-104); BUN 12 mg/dL (8-22); CALCIUM 8.6 mg/dL (8.8-10.2); CHLORIDE 104 mmol/L (98-107); CK PROFILE 34 U/L (24-173); COSMO 277; GOT 32 U/L (10-30); GPT 24 U/L (10-36); POTASSIUM 4.1 mmol/L (3.5-5.1); SODIUM 139 mmol/L (136-145); TCO2 19 mmol/L (25-35); TOTAL PROTEIN 6.1 g/dL (6.3-8.3)
--- NOTE | 2016-12-21 07:33 | Diag Imaging Result Doc PS360 ---
EXAM: CHEST-PORTABLE - 12/21/2016 HISTORY: AMS TECHNIQUE: Portable chest 5:25 AM COMPARISON: 11/22/2016 FINDINGS: Heart size is normal. The lungs appear clear. There is no pleural effusion or pneumothorax identified. IMPRESSION: No evidence of acute disease. Electronically signed by Cecil Gonzalez 12/21/2016 7:31 AM
[2016-12-21] MEDS ORDERED: FLUZONE QUAD 2017-2018 SYRINGE IM ONE (15:14)
--- NOTE | 2016-12-21 15:16 | EKG Report ---
Test Performed on : 12/21/2016 05:02:55 AM Test Reason : AMS Blood Pressure : / mmHG Vent. Rate : 078 BPM Atrial Rate : 078 BPM P-R Int : 182 ms QRS Dur : 108 ms QT Int : 410 ms P-R-T Axes : 093 148 125 degrees QTc Int : 467 ms Suspect arm lead reversal, interpretation assumes no reversal Normal sinus rhythm. Incomplete right bundle branch block Left posterior fascicular block Abnormal ECG When compared with ECG of 23-NOV-2016 12:57, Left posterior fascicular block is now present Incomplete right bundle branch block is now present Unconfirmed Result
[2016-12-21] MEDS ORDERED: NEURONTIN PO PRN (15:47)
[2016-12-21] MEDS: LIORESAL PO PRN (16:24)
[2016-12-21] MEDS: NORCO-7.5 PO PRN (16:24)
[2016-12-21] MEDS: LIPITOR PO SCH (21:12)
[2016-12-21] MEDS: LACTULOSE PO SCH (21:12)
[2016-12-21] MEDS: NEURONTIN PO PRN (21:12)
[2016-12-22] MEDS: NORCO-7.5 PO PRN ×2 (00:06→09:39)
[2016-12-22 05:43] LABS: MANUAL DIFF NEEDED? NO
[2016-12-22 05:58] LABS: BASO% 0.2 % (0.0-0.8); EOS# 0.08 X1000 (0.0-0.7); HEMATOCRIT 40.7 % (37.0-47.0); HEMOGLOBIN 12.7 g/dL (12.0-16.0); IMM GRAN# 0.02 X1000 (0.0-0.04); IMM GRAN% 0.2 % (0.0-0.5); LYMPH# 1.85 X1000 (1.2-3.4); LYMPH% 22.2 % (20.5-51.1); MCH 32.2 PG (27-31); MCHC 31.2 g/dL (33-37); MCV 103.3 FL (81-99); MONO# 0.53 X1000 (0.11-0.59); MONO% 6.4 % (1.7-9.3); MPV 11.2 FL (7.4-10.4); PLT 200 X1000 (130-400); RBC 3.94 XMIL (4.2-5.4)
[2016-12-22 06:41] LABS: AGAP 10; BUN 15 mg/dL (8-22); CALCIUM 8.5 mg/dL (8.8-10.2); CHLORIDE 103 mmol/L (98-107); COSMO 275; POTASSIUM 3.3 mmol/L (3.5-5.1); SODIUM 138 mmol/L (136-145); TCO2 25 mmol/L (25-35)
[2016-12-22] MEDS: ELAVIL PO SCH (08:04)
[2016-12-22] MEDS: NEURONTIN PO PRN (08:04)
[2016-12-22] MEDS: LACTULOSE PO SCH ×2 (08:04→21:39)
[2016-12-22] MEDS: ASPIRIN PO SCH (08:04)
[2016-12-22] MEDS: THERA M PLUS PO SCH (08:04)
[2016-12-22] MEDS: NORVASC PO SCH (08:04)
[2016-12-22] MEDS ORDERED: NEURONTIN PO PRN (11:20)
[2016-12-22] MEDS ORDERED: KLOR-CON PO ONE (11:26)
[2016-12-22] MEDS: LIORESAL PO PRN (13:05)
[2016-12-22] MEDS: NORCO-5 PO PRN (18:50)
[2016-12-22] MEDS: LIPITOR PO SCH (21:39)
[2016-12-23] MEDS: NORCO-5 PO PRN ×2 (02:51→10:52)
[2016-12-23 06:25] LABS: MANUAL DIFF NEEDED? NO
[2016-12-23 06:30] LABS: BASO% 0.3 % (0.0-0.8); EOS# 0.13 X1000 (0.0-0.7); EOS% 1.7 % (0.0-10.0); HEMATOCRIT 38.9 % (37.0-47.0); HEMOGLOBIN 12.5 g/dL (12.0-16.0); IMM GRAN# 0.02 X1000 (0.0-0.04); IMM GRAN% 0.3 % (0.0-0.5); LYMPH# 1.22 X1000 (1.2-3.4); LYMPH% 15.6 % (20.5-51.1); MCHC 32.1 g/dL (33-37); MCV 102.6 FL (81-99); MONO# 0.44 X1000 (0.11-0.59); MONO% 5.6 % (1.7-9.3); NEUT% 76.5 % (42.2-75.2); PLT 152 X1000 (130-400); RBC 3.79 XMIL (4.2-5.4)
[2016-12-23 06:56] LABS: AGAP 7; BUN 11 mg/dL (8-22); CALCIUM 8.4 mg/dL (8.8-10.2); CHLORIDE 104 mmol/L (98-107); COSMO 274; POTASSIUM 3.9 mmol/L (3.5-5.1); SODIUM 138 mmol/L (136-145); TCO2 27 mmol/L (25-35)
[2016-12-23] MEDS: NORVASC PO SCH (09:31)
[2016-12-23] MEDS: ASPIRIN PO SCH (09:31)
[2016-12-23] MEDS: THERA M PLUS PO SCH (09:31)
[2016-12-23] MEDS: LACTULOSE PO SCH (09:31)
[2016-12-23] MEDS: ELAVIL PO SCH (09:31)
[2016-12-23 11:58] VITALS: BP 131/93
== END 2016-12-23 16:10 | disposition home or self-care (01) ==
LOC: P.ED 04:42 → SUATTDRO 08:50 → P.ICU 08:50 → P.MEDSURG 12-22 16:10
PROVIDERS: ATTEND Internal Medicine

== ENCOUNTER 2018-04-30 13:10 | Inpatient (IN) ==
[2018-04-30] MEDS ORDERED: BENADRYL IV ONE ×2 (13:41→17:54)
[2018-04-30] MEDS ORDERED: STERILE WATER INJ. INJ ONE (13:41)
[2018-04-30] MEDS ORDERED: GEODON IM ONE (13:41)
--- NOTE | 2018-04-30 14:00 | EKG Report ---
Test Performed on : 04/30/2018 1:48:17 PM Test Reason : ams Blood Pressure : / mmHG Vent. Rate : 067 BPM Atrial Rate : 067 BPM P-R Int : 128 ms QRS Dur : 084 ms QT Int : 422 ms P-R-T Axes : -13 011 047 degrees QTc Int : 445 ms Sinus rhythm. with marked sinus arrhythmia. Nonspecific ST abnormality Abnormal ECG When compared with ECG of 06-APR-2018 23:35, premature atrial complexes. are no longer present Questionable change in QRS axis Nonspecific T wave abnormality now evident in Inferior leads Unconfirmed Result
[2018-04-30 14:15] LABS: BASO# 0.02 X1000 (0.0-0.2); BASO% 0.2 % (0.0-0.8); EOS# 0.07 X1000 (0.0-0.7); EOS% 0.7 % (0.0-10.0); HEMOGLOBIN 14.8 g/dL (12.0-16.0); LYMPH# 1.35 X1000 (1.2-3.4); LYMPH% 13.3 % (20.5-51.1); MCH 31.9 PG (27-31); MCHC 32.9 g/dL (33-37); MONO# 0.44 X1000 (0.11-0.59); MONO% 4.3 % (1.7-9.3); MPV 10.1 FL (7.4-10.4); NEUT% 81.5 % (42.2-75.2); PLT 375 X1000 (130-400); RBC 4.64 XMIL (4.2-5.4); RDW 14.6 % (11.5-14.5); WBC 10.18 X1000 (4.8-10.8)
--- NOTE | 2018-04-30 14:17 | Diag Imaging Result Doc PS360 ---
CT HEAD W/O CONTRAST - 04/30/2018 INDICATION: ams COMPARISON: 04/06/2018 FINDINGS: The ventricles and sulci are normal in size and contour. No intracranial mass or hemorrhage. The skull is intact. The sinuses mastoids and middle ears are clear. IMPRESSION: Negative exam. This exam was performed using automated exposure control, adjustment of mA or kV according to patient size, and/or use of iterative reconstruction technique Electronically signed by Nicola Barrios 04/30/2018 2:15 PM
[2018-04-30 14:21] LABS: INR 0.84; PROTIME 12.2 Seconds (11.0-16.0)
[2018-04-30 14:22] LABS: PTT 28.9 Seconds (22.3-41.8)
--- NOTE | 2018-04-30 14:23 | Diag Imaging Result Doc PS360 ---
EXAM: CHEST-PORTABLE HISTORY: ams TECHNIQUE: Portable chest single view COMPARISON: 04/06/2018 FINDINGS: The lungs are well expanded. The heart is not enlarged. The vessels are not distended. There are no infiltrates. No effusion identified. Mild to moderate scoliosis. IMPRESSION: No acute abnormality. Electronically signed by Duane Gamboa 04/30/2018 2:20 PM
[2018-04-30 14:33] LABS: ALLEN TEST YES; BE -0.8 mmoll (-3.0-3.0); BLOOD TYPE ARTERIAL; HCO3-(ACT) 24.2 mmoll (20.0-26.0); O2(CT) 20.3 mL/dL (15.0-23.0); O2HB 94.9 % (95.0-99.0); PCO2(98.6) 37 mmHg (35-45); PO2(98.6) 84 mmHg (60-100); SAMPLE BLOOD; SAO2 98.3 % (95.0-100.0); THB 15.2 g/dL (11.5-17.4); pH(98.6) 7.41 (7.35-7.45)
[2018-04-30 14:34] LABS: MODALITY ROOM AIR
[2018-04-30 14:39] LABS: URINE SOURCE CLEAN CATCH
[2018-04-30 14:39] LABS: AGAP 14; ALB/GLOB RATIO 1.2; ALBUMIN 4.2 g/dL (3.5-5.0); ALKALINE PHOSPHATASE 116 U/L (32-104); BUN 14 mg/dL (8-22); CALCIUM 9.5 mg/dL (8.8-10.2); CHLORIDE 109 mmol/L (98-107); COSMO 293; CREATININE 0.4 mg/dL (0.5-0.9); ESTIMATED GFR > 60; GLUCOSE 130 mg/dL (70-104); GOT 25 U/L (10-30); GPT 18 U/L (10-36); POTASSIUM 3.7 mmol/L (3.5-5.1); SODIUM 146 mmol/L (136-145); TCO2 23 mmol/L (25-35); TOTAL BILIRUBIN 0.32 mg/dL (0.20-1.00); TOTAL PROTEIN 7.8 g/dL (6.3-8.3)
[2018-04-30 14:41] LABS: BILIRUBIN URINE NEGATIVE (NEGATIVE); BLOOD URINE NEGATIVE (NEGATIVE); COLOR YELLOW; GLUCOSE URINE NEGATIVE (NEGATIVE); KETONE URINE 10 mg/dL (NEGATIVE); LEUKOCYTES URINE NEGATIVE (NEGATIVE); NITRITE URINE NEGATIVE (NEGATIVE); PH URINE 6.5; PROTEIN URINE TRACE mg/dL (NEGATIVE); SP GRAVITY URINE 1.011; TURBIDITY URINE CLEAR (CLEAR); UROBILINOGEN URINE NORMAL (NORMAL)
[2018-04-30 14:42] LABS: UR EPITHELIAL CELLS <10 /HPF (<10); URINE BACTERIA NEGATIVE /HPF; URINE RBC <10 /HPF (<10); URINE WBC <10 /HPF (<10)
[2018-04-30 15:04] LABS: UR AMPHETAMINES QUAL NONE DETECTED (NONE DETECT); UR BARBITUATES QUAL NONE DETECTED (NONE DETECT); UR BENZODIAZEPIN QUAL NONE DETECTED (NONE DETECT); UR CANNABINOIDS QUAL NONE DETECTED (NONE DETECT); UR COCAINE QUAL NONE DETECTED (NONE DETECT); UR METHADONE QUAL NONE DETECTED (NONE DETECT); UR OPIATES QUAL NONE DETECTED (NONE DETECT); UR OXYCODONE QUAL NONE DETECTED (NONE DETECT); UR PCP QUAL NONE DETECTED (NONE DETECT)
[2018-04-30] MEDS ORDERED: CATAPRES PO ONE (16:38)
[2018-04-30] MEDS ORDERED: LABETALOL IV ONE (16:38)
[2018-04-30] MEDS ORDERED: APRESOLINE IV ONE (17:19)
[2018-04-30] MEDS ORDERED: HALDOL IV ONE (17:54)
[2018-04-30] MEDS ORDERED: ATIVAN IV ONE (17:54)
[2018-04-30] MEDS ORDERED: CARDENE 20 MG/D5W 20 MG/200 ML PIGGYBACK IV SCH (18:00)
--- NOTE | 2018-04-30 18:02 | PROVIDER DOCUMENTATION ---
This chart was entered by Danelle Morrell Scribe, acting as scribe for Joseph Obrien MD. HPI-Psychological Disorder - General Chief Complaint: Altered Mental Status Stated Complaint: BEHAVIOR ISSUES Time Seen by Provider: 04/30/18 13:13 Source: family () Allergies/Adverse Reactions: Patient Allergies Allergy/AdvReac Type Severity Reaction Status Date / Time promethazine HCl * Allergy Intermediate HALLUCINATI Verified 04/06/18 10:38 [From Phenergan] ONS Home Medications: Home Medication List Medication Instructions Recorded Confirmed Last Taken Type Clonidine [Catapres] 0.1 mg PO DAILY 10/23/17 04/06/18 04/04/18 History Amitriptyline HCl 50 mg PO DAILY #30 11/22/17 04/06/18 04/04/18 Rx Lactulose 1 dose PO DAILY 03/12/18 04/06/18 04/04/18 History Acetaminophen [Tylenol] 650 mg PO Q6H PRN PRN tablet 04/10/18 Unknown Rx Bisacodyl [Dulcolax] 10 mg [place] BID #50 supp 04/10/18 Unknown Rx Lidocaine 5% Patch [Lidoderm] 1 ea TOP DAILY #10 patch 04/10/18 Unknown Rx Omeprazole 40 mg PO DAILY #120 capsule. 04/10/18 Unknown Rx CefDINIR [Omnicef] 300 mg PO BID 04/19/18 04/19/18 Unknown History - History of Present Illness-Psych Nature of Presenting Problem: Patient is a 58 year old female who presents to the ED via EMS with bizarre behavior. Patient's states patient's bizarre behavior started 2 days ago. Patient's also states nausea and vomiting. Patient's states patient has similar symptoms once a month. Patient's states she is on chronic pain medication. Patient's denies psych placement or the patient being on psych medications. Patient's states history of cirrhosis. Patient's states history of elevated ammonia. Onset/Duration: reports: 2 days ago Timing: reports: still present Severity: reports: mild Situational problems related to:: reports: N/A Psychiatric Complaints: reports: other (bizarre behavior) Substance Use: reports: denies Previous psych related hospitalizations?: No Patient arrived by:: EMS called by spouse/family Similar Symptoms Previously?: Yes Recently seen or treated by another doctor?: Yes Review of Systems - Adult - REVIEW OF SYSTEMS - ADULT Constitutional: reports: no symptoms reported Eyes: reports: no symptoms reported Ears, Nose, Mouth & Throat: reports: no symptoms reported Cardiovascular: reports: no symptoms reported Respiratory: reports: no symptoms reported Gastrointestinal: reports: no symptoms reported Genitourinary: reports: no symptoms reported Musculoskeletal: reports: no symptoms reported Integumentary: reports: no symptoms reported Neurological: reports: no symptoms reported Psychiatric: reports: other (bizarre behavior). denies: anxiety, depression Endocrine: reports: no symptoms reported Hematologic/Lymphatic: reports: no symptoms reported Allergic/Immunologic: reports: no symptoms reported All Other Systems: Reviewed and Negative Past History - Adult - PAST MEDICAL HISTORY-ADULT Review of Records: reports: Nursing Assessment Review, Medications Reviewed, Social history reviewed & non-contributory. Major Childhood Illnesses: reports: denies history Cardiovascular: reports: HTN, hyperlipidemia Respiratory: reports: COPD, sleep apnea Gastrointestinal: reports: GERD, liver disease Obstetrical/Gynecological: reports: denies history Genitourinary: reports: denies history Musculoskeletal: reports: chronic pain, other (scoliosis) Neurological: reports: denies history Endocrine/Immune: reports: denies history Other Conditions: reports: denies history - PRIOR SURGERIES/PROCEDURES Surgical/Procedure History: reports: cholecystectomy, bowel surgery, back/neck, other (2 PERFARATED ULCERS) - IMMUNIZATION STATUS Childhood Immunizations: See Nurse Assessment Flu Vaccine: See Nurse Assessment - FAMILY HISTORY Family History: reviewed, not pertinent - SOCIAL HISTORY Smoking: cigarettes, less than 1 pack/day Provider spent 3-5 mins advising pt. on dangers of tobacco.: Discussed manners to quit use, and f/u contacts for add'l counseling. Substance Use: denies Living Situation: family Physical Exam-Psych Focus - Physical Exam-Psych Initial Vital Signs Reviewed: Yes Appearance: neat, no apparent distress, alert Neurological: alert, other (intermittent outburst) Behavior/Eye Contact/Speech: avoids eye contact, compulsive HENMT: other (dry mucous membranes) Neck: normal inspection Respiratory: chest non-tender, lungs clear, normal breath sounds Cardiovascular: normal peripheral pulses, regular rate, rhythm Abdominal Exam: normal bowel sounds, non tender, soft Extremity: non-tender, normal inspection Integumentary: normal color, warm/dry, other (poor skin turgor) Progress - PLAN OF CARE/RESULTS Progress/Plan/Lab Results: Vital Signs - 8 hr 04/30/18 13:18 04/30/18 17:24 04/30/18 17:26 Temperature 98.0 F Pulse Rate 86 Respiratory Rate 18 Blood Pressure 180/115 180/130 188/131 O2 Sat by Pulse Oximetry 100 04/30/18 17:32 04/30/18 17:50 04/30/18 17:52 Temperature Pulse Rate Respiratory Rate Blood Pressure 169/119 197/134 210/138 O2 Sat by Pulse Oximetry Laboratory Results - last 24 hr 04/30/18 04/30/18 04/30/18 13:20 13:20 13:20 WBC 10.18 RBC 4.64 Hgb 14.8 Hct 45.0 MCV 97.0 MCH 31.9 H MCHC 32.9 L RDW Std Deviation 14.6 H Plt Count 375 MPV 10.1 Neut % (Auto) 81.5 H Lymph % (Auto) 13.3 L [place] % (Auto) 4.3 Eos % (Auto) 0.7 Baso % (Auto) 0.2 Neut # (Auto) 8.30 H Lymph # (Auto) 1.35 [place] # (Auto) 0.44 Eos # (Auto) 0.07 Baso # (Auto) 0.02 PT INR PTT (Actin FS) Specimen Type Sample Site pH pCO2 pO2 HCO3 Base Excess Oxyhemoglobin ABG O2 Sat (Calculated) ABG O2 Saturation ABG Carboxyhemoglobin ABG Methemoglobin Eddie Test A-a O2 Difference Total Hemoglobin Lactate Blood Gas Modality FiO2 % Sodium 146 H Potassium 3.7 Chloride 109 H Carbon Dioxide 23 L Anion Gap 14 BUN 14 Creatinine 0.4 L Estimated GFR/1.73 m2 > 60 BUN/Creatinine Ratio 35 Glucose 130 H POC Glucose Calculated Osmolality 293 Calcium 9.5 Magnesium 2.0 Total Bilirubin 0.32 AST 25 ALT 18 Alkaline Phosphatase 116 H Ammonia Troponin T [id number] Pept Total Protein 7.8 Albumin 4.2 Globulin 3.6 Albumin/Globulin Ratio 1.2 Plasma Lactate Urine Source Urine Color Urine Turbidity Urine pH Ur Specific [place] Urine Protein Ur Glucose (Stick) Ur Ketones (Stick) Urine Blood Urine Nitrite Urine Bilirubin Urobilinogen Dipstick Urine Leukocytes Urine WBC (Auto) Urine RBC (Auto) U Epithel Cells (Auto) Urine Bacteria (Auto) Urine Opiates Screen Ur Oxycodone Screen Ur Methadone, Qual Ur Barbiturates Screen Ur Phencyclidine Scrn Ur Amphetamines Screen U Benzodiazepines Scrn Urine Cocaine Screen U Cannabinoids Screen Plasma/Serum Ethyl Alc 04/30/18 04/30/18 04/30/18 13:20 13:20 13:20 WBC RBC Hgb Hct MCV MCH MCHC RDW Std Deviation Plt Count MPV Neut % (Auto) Lymph % (Auto) [place] % (Auto) Eos % (Auto) Baso % (Auto) Neut # (Auto) Lymph # (Auto) [place] # (Auto) Eos # (Auto) Baso # (Auto) PT 12.2 INR 0.84 PTT (Actin FS) 28.9 Specimen Type Sample Site pH pCO2 pO2 HCO3 Base Excess Oxyhemoglobin ABG O2 Sat (Calculated) ABG O2 Saturation ABG Carboxyhemoglobin ABG Methemoglobin Eddie Test A-a O2 Difference Total Hemoglobin Lactate Blood Gas Modality FiO2 % Sodium Potassium Chloride Carbon Dioxide Anion Gap BUN Creatinine Estimated GFR/1.73 m2 BUN/Creatinine Ratio Glucose POC Glucose Calculated Osmolality Calcium Magnesium Total Bilirubin AST ALT Alkaline Phosphatase Ammonia Troponin T < 0.010 [id number] Pept 97 Total Protein Albumin Globulin Albumin/Globulin Ratio Plasma Lactate Urine Source Urine Color Urine Turbidity Urine pH Ur Specific [place] Urine Protein Ur Glucose (Stick) Ur Ketones (Stick) Urine Blood Urine Nitrite Urine Bilirubin Urobilinogen Dipstick Urine Leukocytes Urine WBC (Auto) Urine RBC (Auto) U Epithel Cells (Auto) Urine Bacteria (Auto) Urine Opiates Screen Ur Oxycodone Screen Ur Methadone, Qual Ur Barbiturates Screen Ur Phencyclidine Scrn Ur Amphetamines Screen U Benzodiazepines Scrn Urine Cocaine Screen U Cannabinoids Screen Plasma/Serum Ethyl Alc 04/30/18 04/30/18 04/30/18 13:53 14:20 14:20 WBC RBC Hgb Hct MCV MCH MCHC RDW Std Deviation Plt Count MPV Neut % (Auto) Lymph % (Auto) [place] % (Auto) Eos % (Auto) Baso % (Auto) Neut # (Auto) Lymph # (Auto) [place] # (Auto) Eos # (Auto) Baso # (Auto) PT INR PTT (Actin FS) Specimen Type ARTERIAL Sample Site R RADIAL pH 7.41 pCO2 37 pO2 84 HCO3 24.2 Base Excess -0.8 Oxyhemoglobin 94.9 L ABG O2 Sat (Calculated) 20.3 ABG O2 Saturation 98.3 ABG Carboxyhemoglobin 2.50 ABG Methemoglobin 1.0 Eddie Test YES A-a O2 Difference 19.0 Total Hemoglobin 15.2 Lactate 0.80 Blood Gas Modality ROOM AIR FiO2 % 21.0 Sodium Potassium Chloride Carbon Dioxide Anion Gap BUN Creatinine Estimated GFR/1.73 m2 BUN/Creatinine Ratio Glucose POC Glucose 144 H D Calculated Osmolality Calcium Magnesium Total Bilirubin AST ALT Alkaline Phosphatase Ammonia Troponin T [id number] Pept Total Protein Albumin Globulin Albumin/Globulin Ratio Plasma Lactate Urine Source CLEAN CATCH Urine Color YELLOW Urine Turbidity CLEAR Urine pH 6.5 Ur Specific [place] 1.011 Urine Protein TRACE A Ur Glucose (Stick) NEGATIVE Ur Ketones (Stick) 10 A Urine Blood NEGATIVE Urine Nitrite NEGATIVE Urine Bilirubin NEGATIVE Urobilinogen Dipstick NORMAL Urine Leukocytes NEGATIVE Urine WBC (Auto) <10 Urine RBC (Auto) <10 U Epithel Cells (Auto) <10 Urine Bacteria (Auto) NEGATIVE Urine Opiates Screen Ur Oxycodone Screen Ur Methadone, Qual Ur Barbiturates Screen Ur Phencyclidine Scrn Ur Amphetamines Screen U Benzodiazepines Scrn Urine Cocaine Screen U Cannabinoids Screen Plasma/Serum Ethyl Alc 04/30/18 04/30/18 04/30/18 14:20 14:24 14:24 WBC RBC Hgb Hct MCV MCH MCHC RDW Std Deviation Plt Count MPV Neut % (Auto) Lymph % (Auto) [place] % (Auto) Eos % (Auto) Baso % (Auto) Neut # (Auto) Lymph # (Auto) [place] # (Auto) Eos # (Auto) Baso # (Auto) PT INR PTT (Actin FS) Specimen Type Sample Site pH pCO2 pO2 HCO3 Base Excess Oxyhemoglobin ABG O2 Sat (Calculated) ABG O2 Saturation ABG Carboxyhemoglobin ABG Methemoglobin Eddie Test A-a O2 Difference Total Hemoglobin Lactate Blood Gas Modality FiO2 % Sodium Potassium Chloride Carbon Dioxide Anion Gap BUN Creatinine Estimated GFR/1.73 m2 BUN/Creatinine Ratio Glucose POC Glucose Calculated Osmolality Calcium Magnesium Total Bilirubin AST ALT Alkaline Phosphatase Ammonia 30 Troponin T [id number]-[id number]-Prxbfvxueym Pept Total Protein Albumin Globulin Albumin/Globulin Ratio Plasma Lactate 1.1 Urine Source Urine Color Urine Turbidity Urine pH Ur Specific [place] Urine Protein Ur Glucose (Stick) Ur Ketones (Stick) Urine Blood Urine Nitrite Urine Bilirubin Urobilinogen Dipstick Urine Leukocytes Urine WBC (Auto) Urine RBC (Auto) U Epithel Cells (Auto) Urine Bacteria (Auto) Urine Opiates Screen NONE DETECTED Ur Oxycodone Screen NONE DETECTED Ur Methadone, Qual NONE DETECTED Ur Barbiturates Screen NONE DETECTED Ur Phencyclidine Scrn NONE DETECTED Ur Amphetamines Screen NONE DETECTED U Benzodiazepines Scrn NONE DETECTED Urine Cocaine Screen NONE DETECTED U Cannabinoids Screen NONE DETECTED Plasma/Serum Ethyl Alc Orders Category Date Time Status Gastelum Cath Insertion ORDERED Care 04/30/18 13:38 Active Nursing- Obtain EKG once Care 04/30/18 13:38 Active Saline Loc NOW Care 04/30/18 13:38 Active CHEST-PORTABLE [RAD] Stat Exams 04/30/18 13:[address] HEAD W/O CONTRAST [CT] Stat Exams 04/30/18 13:40 Completed ABG [RESP] Routine Lab 04/30/18 14:20 Completed ALCOHOL BLOOD Stat Lab 04/30/18 13:20 Completed AMMONIA [CHEM] Stat Lab 04/30/18 14:24 Completed BLOOD CULTURE [BLDCUL] Stat Lab 04/30/18 15:24 Results CBC WITH ELECTRONIC DIFF [HEME] Stat Lab 04/30/18 13:20 Completed COMPREHENSIVE METABOLIC PANEL [CHEM] Stat Lab 04/30/18 13:20 Completed LACTATE, PLASMA [CHEM] Stat Lab 04/30/18 14:24 Completed MAGNESIUM [CHEM] Stat Lab 04/30/18 13:20 Completed PRO B-NATRIURETIC PEPTIDE Stat Lab 04/30/18 13:20 Completed PROTIME WITH INR [COAG] Stat Lab 04/30/18 13:20 Completed PTT [COAG] Stat Lab 04/30/18 13:20 Completed TROPONIN T Stat Lab 04/30/18 13:20 Completed URINALYSIS W/POSS RFLX CULT [URINALYSIS] Stat Lab 04/30/18 14:20 Completed URINE DRUG SCREEN Stat Lab 04/30/18 14:20 Completed Clonidine [Catapres] Med 04/30/18 16:38 Discontinued 0.2 mg PO NOW ONE Diphenhydramine [Benadryl] Med 04/30/18 13:41 Discontinued 25 mg IV NOW ONE Diphenhydramine [Benadryl] Med 04/30/18 17:54 Discontinued 25 mg IV NOW ONE Haloperidol Lactate [Haldol] Med 04/30/18 17:54 Discontinued 5 mg IV NOW ONE Hydralazine [Apresoline] Med 04/30/18 17:19 Discontinued 10 mg IV NOW ONE Labetalol Med 04/30/18 16:38 Discontinued 10 mg IV NOW ONE Lorazepam [Ativan] Med 04/30/18 17:54 Discontinued 1 mg IV NOW ONE Nicardipine 20 mg/D5w [Cardene 20 mg/D5w] Med 04/30/18 18:00 Active 20 mg in 200 ml IV As Directed Water, Sterile Inj [Sterile Water Inj] Med 04/30/18 13:41 Discontinued 1.2 ml INJ NOW ONE Ziprasidone [Geodon] Med 04/30/18 13:41 Discontinued 20 mg IM NOW ONE EKG [EKG] Stat Ther 04/30/18 13:38 Draft Result Diagrams: 04/30/18 13:20 04/30/18 13:20 - REASSESSMENT Reassessment #1 Time Reassessed: 16:37 Status: unchanged (after Geodon and Benadryl, there is no sign of medical reason for AMS, will ask for psych screen) Reassessment #2 Time Reassessed: 17:55 Status: unchanged (still psychotic, BP continues to rise, and is not relieved by po clonidine or IV hydralazine. WIll start a cardene drip and sedate, as she may be encephalopathic from malignant hypertension) - EKG 1 Time of EKG reading by physician:: 13:48 EKG Read and Signed by:: Joseph Obrien EKG Interpretation (*Must complete 3 of following elements*): Abnormal Rate: 67 Rhythm: sinus rhythm with marked sinus arrhythmia [place]: normal [place] Interval: normal Comments: nonspecific ST abnormality. - XRAY 1 XRAY Study: Chest Impression: See EMR Report (EXAM: CHEST-PORTABLE HISTORY: ams TECHNIQUE: Portable chest single view COMPARISON: 04/06/2018 FINDINGS: The lungs are well expanded. The heart is not enlarged. The vessels are not distended. There are no infiltrates. No effusion identified. Mild to moderate scoliosis. IMPRESSION: No acute abnormality. Electronically signed by Duane Gamboa 04/30/2018 2:20 PM 04/30/18 1420 Interpreting Physician: Duane Gamboa MD Dictated Date/Time: 04/30/18 1420 cc: Joseph Obrien MD; Petr Cardenas MD) - CT/MRI 1 CT Study: Head Impression: See EMR Report (CT HEAD W/O CONTRAST - 04/30/2018 INDICATION: ams COMPARISON: 04/06/2018 FINDINGS: The ventricles and sulci are normal in size and contour. No intracranial mass or hemorrhage. The skull is intact. The sinuses mastoids and middle ears are clear. IMPRESSION: Negative exam. This exam was performed using automated exposure control, adjustment of mA or kV according to patient size, and/or use of iterative reconstruction technique Electronically signed by Nicola Barrios 04/30/2018 2:15 PM 04/30/18 1415 Interpreting Physician: Nicola Barrios MD Dictated Date/Time: 04/30/18 1412 cc: Joseph Obrien MD; Petr Cardenas MD) - CONSULTS/PCP/HOSPITALIST Notification #1 *Consult/PCP/Hospitalist*: Hospitalist paged at [phone]. Matias returned call Time Discussed: 18:21 (admit to [facility]) Consult Disposition: Admit Departure - Departure Date of Disposition Decision: 04/30/18 Time of Disposition Decision: 18:21 DIAGNOSIS: Hypertensive urgency, malignant, Encephalopathy acute Psychosis Qualifiers: Psychosis type: unspecified psychosis type Qualified Code(s): F29 - Unspecified psychosis not due to a substance or known physiological condition Disposition: ADMITTED INPATIENT 09 Certified Medical Emergency: Emergent Condition: Fair Referrals and Follow-Ups: Petr Cardenas MD [Primary Care Provider] - - Critical Care Note This patient required my direct & personal management of CC.: Yes Total Time (mins): 43 Critical Care Statement: This patient required my direct personal management to treat or rule out processes, the absence of which, could potentiallly result in sudden, clinically significant life or limb threatening deterioration. Attestation - Physician/ DIAMANTE Attestation Patient care was provided by Advanced Practice Provider:: No The physician spent face to face time with patient:: Yes Advanced Practice Provider documentation review:: Supervising physician onsite and consulted in the evaluation and care of this patient. The physician did have a face to face encounter with the patient. This chart was documented by the indicated scribe, (Danelle Morrell Scribe) and accurately reflects the services I performed and decisions made by me, Joseph Obrien MD, as attested by the provider's signature.
[2018-04-30] MEDS ORDERED: LR 1,000 ML IV ONE (20:42)
[2018-04-30] MEDS: PROTONIX IV SCH (21:14)
[2018-04-30] MEDS: DULCOLAX PR SCH (21:14)
--- NOTE | 2018-04-30 22:00 | HISTORY AND PHYSICAL ---
PRIMARY CARE PROVIDER: Collins Verma MD. CHIEF COMPLAINT: Altered mental status. HISTORY OF PRESENT ILLNESS: Ms. Pete is a very frail 58-year-old female, well known to our service. She has had multiple admissions for opioid overdose, toxic encephalopathy, and pain. Has a history of GERD, hypertension and hyperlipidemia. She presented to the ER today with her significant other, who was not available to speak to during my assessment, stating that she had had bizarre behavior for 2 days, also some nausea and vomiting. He referenced her last admission, saying that this was similar. She was here for toxic metabolic encephalopathy secondary to abruptly running out of her pain medications. I was unable to speak to anyone whether she has been taking her pain medications. As far as I known, she does not have any psychiatric history and is not on any psychiatric medications. She does have a history of cirrhosis , I believe, and an elevated ammonia; however, her liver functions are within normal limits. Her total bilirubin and her ammonia are within normal limits at this time. CT scan in the emergency room was grossly normal. Laboratory data was grossly normal. She was given multiple MAGNETIZER depressants in the emergency room, Haldol 5 mg, Geodon 20 mg, Benadryl 50 mg, and Ativan 1 mg IV. She was hypertensive on arrival as well. She was given 10 mg of labetalol,10 mg of hydralazine and 0.2 mg of clonidine. Her blood pressure is now 126/87 on arrival to the ICU. She will be monitored overnight for further evaluation and treatment. PAST MEDICAL HISTORY: See History of Present Illness. PREVIOUS SURGICAL HISTORY: Cholecystectomy, perforated ulcer times 2, gastric bypass surgery. FAMILY HISTORY: Hypertension, coronary artery disease and seizures. SOCIAL HISTORY: This cannot be obtained today. From previous admission at the end of last month, she smokes a pack a day, and the boyfriend at that time had denied illicit drugs or alcohol. REVIEW OF SYSTEMS: Unable to be obtained. HOME MEDICATIONS: Unable to be obtained. Order was placed for nursing to reconcile home medications. ALLERGIES: Promethazine. PHYSICAL EXAMINATION: VITAL SIGNS: Temperature 98, pulse 90, blood pressure 126/88, oxygen saturation 97% on room air. GENERAL: A very frail 58-year-old female who appears to be chronically ill. She is lying in the ICU bed, disoriented x3. The only phrase she is speaking is "Help me, Lord." She does not respond to verbal commands. Does reflex from deep stimuli. NEUROLOGIC: Does not open her eyes to verbal stimulus. Does not follow any meaningful commands She appears to be hypersexual. Is touching herself inappropriately in the bed. She appears able to move all 4 extremities. HEENT: Head is atraumatic, normocephalic. Pupils equal, round, and reactive to light. Extraocular eye movement is unable to be tested. The patient will not follow commands. Oral mucosa is dry. NECK: Supple. No JVD. No thyromegaly. Trachea is midline. No cervical lymphadenopathy. CARDIAC: S1 and S2 appreciated. No murmurs, gallops or rubs. LUNGS: Decreased bilaterally. No rhonchi, wheezes or rales. Symmetrical rise and fall with respirations. ABDOMEN: Scaphoid, soft, nondistended, nontender. Bowel sounds present in all 4 quadrants, hypoactive. No pulsatile mass. No organomegaly. EXTREMITIES: No clubbing, cyanosis, or edema, 1+ pedal pulses bilaterally. GENITOURINARY: No bladder distention. A Gastelum catheter is in place, draining clear yellow urine. DIAGNOSTIC DATA: CT of the head: Negative exam. Chest x-ray: No infiltrates. No effusions. No pulmonary edema. LABORATORY DATA: CBC within normal limits. Coags within normal limits. ABG within normal limits. Sodium 146, potassium 3.7, chloride 109, carbon dioxide 23, BUN 14, creatinine 0.4, glucose 130. Urine unremarkable. Toxicology screen is negative. Serum alcohol is negative. ASSESSMENT/PLAN: 1. Toxic metabolic encephalopathy. This could also be related to hypertensive encephalopathy. The patient is no longer hypertensive, but was originally. Once she was started on a Cardene drip, then her blood pressure reacted to all the medication she was given in the emergency room. She is normotensive at this time. Will add in a p.r.n. medication for her blood pressure. No psychoactive drugs overnight. Continue to monitor in the intensive care unit. If patient is more awake tomorrow morning, will order a [facility] consultation. 2. Hypertension. As noted above, she received multiple antihypertensives in the emergency room. Will continue hydralazine as needed for systolic blood pressure greater than 160. 3. Fluid volume depletion. Will give IV crystalloids. Recheck laboratory data in the morning. 4. History of perforated gastric ulcer. Will place on a proton pump inhibitor. 5. Nausea and vomiting. Will give Zofran. 6. Further recommendations per patient's clinical course. Dictated by JAYESH Christensen for Boone Mejia MD Addendum: Patient seen and examined by myself. Agree with STATOR TESTER note. It reflects my assessment and plan. Patient is being admitted to hospital for elevated blood pressure and encephalopathy. When ER called us blood pressure was elevated but upon my examination she is better. Will monitor patient in the ICU closely. cc: JAYESH Christensen MD [facility]
[2018-04-30] MEDS: APRESOLINE IV PRN (22:56)
[2018-05-01] MEDS ORDERED: ATIVAN IV ONE (02:13)
[2018-05-01] MEDS ORDERED: LABETALOL IV ONE (02:14)
[2018-05-01 05:50] LABS: BASO# 0.02 X1000 (0.0-0.2); BASO% 0.1 % (0.0-0.8); EOS# 0.01 X1000 (0.0-0.7); EOS% 0.1 % (0.0-10.0); HEMATOCRIT 45.2 % (37.0-47.0); HEMOGLOBIN 14.3 g/dL (12.0-16.0); IMM GRAN# 0.03 X1000 (0.0-0.04); IMM GRAN% 0.2 % (0.0-0.5); LYMPH# 1.49 X1000 (1.2-3.4); LYMPH% 10.6 % (20.5-51.1); MCHC 31.6 g/dL (33-37); MCV 97.8 FL (81-99); MONO# 0.74 X1000 (0.11-0.59); MONO% 5.3 % (1.7-9.3); MPV 9.9 FL (7.4-10.4); NEUT# 11.79 X1000 (1.4-6.5); NEUT% 83.7 % (42.2-75.2); PLT 337 X1000 (130-400); RBC 4.62 XMIL (4.2-5.4); RDW 14.9 % (11.5-14.5); WBC 14.08 X1000 (4.8-10.8)
[2018-05-01 06:16] LABS: AGAP 14; BUN 14 mg/dL (8-22); CALCIUM 9.3 mg/dL (8.8-10.2); CHLORIDE 109 mmol/L (98-107); COSMO 296; CREATININE 0.4 mg/dL (0.5-0.9); ESTIMATED GFR > 60; GLUCOSE 119 mg/dL (70-104); POTASSIUM 3.9 mmol/L (3.5-5.1); SODIUM 148 mmol/L (136-145); TCO2 25 mmol/L (25-35)
[2018-05-01] MEDS: DULCOLAX PR SCH ×2 (09:34→20:37)
[2018-05-01] MEDS: ZOFRAN IV PRN (09:43)
--- NOTE | 2018-05-01 11:13 | PROGRESS NOTE ---
DATE: 05/01/2018 SUBJECTIVE: Patient is awake and responds to questions but she is pretty confused, unclear etiology really. She has had episodes like this before and she had infection previously, she had an overdose in October and November, encephalopathy in February, admission in March. This may be related to her medications. Her does not seem to clearly feel that is related to that, but she came in with toxic metabolic encephalopathy. She is on amitriptyline, lidocaine patch. I cannot see she is on any pain medication but he states that she is on pain medication and sometimes she does not absorb her pain medication in any case. PROBLEM LIS: Acute toxic encephalopathy. Patient is stable, no major. Rule out treatment. In any case, it is unclear if this is related to medications. She states she is not on any pain medicines. Review of her summary of her home medications, she is on baclofen that was just filled in April, a couple days ago actually. She is on gabapentin, lidocaine patch, methocarbamol. There are no narcotics, though, she is not on any pain medication per se, but she is on baclofen which was just filled. She has been placed on cefdinir, so quite sure she is just having a reaction to that. PHYSICAL EXAMINATION: Vital signs: Blood pressure 136/100, heart rate of 97, respiratory rate 20, temperature 98.1 degrees, 98% on room air. Cardiovascular: Regular rate and rhythm. Pulmonary: Bilateral breath sounds clear to auscultation. GI: Soft, nontender, nondistended. Bowel sounds are positive. LABORATORY DATA: White count 14, hemoglobin and hematocrit 14 and 45, platelets 337,000. Urine was clear. Head CT was clear. UDS was negative, and actually she had opiates on 04/19/2018, but none last night, although I cannot clearly see that she is actually on any opiates, at least nobody has prescribed her any. I do not know if she has run out, but it is not clear. PROBLEM LIST: 1. Encephalopathy. We will continue to monitor. Her blood pressure is stable. She has not had any other medications. It is not clear she has a drug history because she is not on any medications for that. She is not prescribed any narcotics and she did not have any in her system. 2. Hypertension. Appears to be stable. 3. Fluid volume depletion. That seems to be stable, so at this point, I am not sure if possibly the encephalopathy is related to just her elevated blood pressure, although she is still somewhat confused. PLAN: Medically speaking, we do not have any evidence of infection. I am going to get an MRI just to make sure she has not had an event. Her sodium is still somewhat high. Probably need to fix that before evaluating for [facility] evaluation, and we will continue to monitor. I think plan is, if she is stable, probably tomorrow she can be re-evaluated by [facility] assuming her labs have stabilized. cc: Kyle Liu MD
[2018-05-01] MEDS: D5 1/2 NS 1,000 ML IV SCH (11:18)
--- NOTE | 2018-05-01 12:44 | Diag Imaging Result Doc PS360 ---
EXAM: ABDOMEN FLAT/UPRIGHT 05/01/2018 HISTORY: pain TECHNIQUE: Flat and upright abdomen COMMENT: There is marked rotoscoliosis of the lumbar spine with convexity to the left. There is colonic and small bowel gas. There is a suture line in the left abdomen and another in the left upper quadrant. There are multiple surgical clips on either side of the lower thoracic spine. No definite evidence organomegaly or mass is present. IMPRESSION: Possible ileus. Electronically signed by Fam Robertson 05/01/2018 12:41 PM
--- NOTE | 2018-05-01 12:47 | Diag Imaging Result Doc PS360 ---
EXAM: MRI BRAIN W/WO CONTRAST 05/01/2018 HISTORY: encephalopathy TECHNIQUE: T1 sagittal, axial and post gadolinium-enhanced T1 SOUZA with coronal reformation, T2, FLAIR, DWI axial and coronal gradient echo. COMMENT: There is considerable motion artifact. There is no evidence of restricted diffusion. No definite evidence of mass effect, bleed, or abnormal extra-axial fluid collection is present. There is no evidence of abnormal gadolinium enhancement. IMPRESSION: Technically suboptimal study. No definite evidence of acute disease. Electronically signed by Fam Robertson 05/01/2018 12:45 PM
[2018-05-01 12:58] LABS: TSH 1.12 uIUmL (0.27-4.20)
[2018-05-01] MEDS: SODIUM CHLORIDE 0.9% INJ SCH (20:37)
[2018-05-01] MEDS: PROTONIX IV SCH (20:37)
[2018-05-01] MEDS: APRESOLINE IV PRN (20:41)
[2018-05-02] MEDS: D5 1/2 NS 1,000 ML IV SCH ×2 (02:39→16:25)
[2018-05-02] MEDS: ZOFRAN IV PRN ×4 (02:39→21:44)
[2018-05-02] MEDS: APRESOLINE IV PRN ×2 (04:44→21:46)
[2018-05-02] MEDS: LOVENOX SUBQ SCH (05:52)
[2018-05-02 08:27] LABS: BASO# 0.02 X1000 (0.0-0.2); BASO% 0.2 % (0.0-0.8); EOS# 0.05 X1000 (0.0-0.7); EOS% 0.5 % (0.0-10.0); HEMATOCRIT 46.4 % (37.0-47.0); IMM GRAN# 0.03 X1000 (0.0-0.04); IMM GRAN% 0.3 % (0.0-0.5); LYMPH# 0.87 X1000 (1.2-3.4); LYMPH% 8.2 % (20.5-51.1); MCHC 32.3 g/dL (33-37); MCV 95.9 FL (81-99); MONO% 5.6 % (1.7-9.3); MPV 10.8 FL (7.4-10.4); NEUT% 85.2 % (42.2-75.2); PLT 322 X1000 (130-400); RBC 4.84 XMIL (4.2-5.4); RDW 14.6 % (11.5-14.5); WBC 10.67 X1000 (4.8-10.8)
[2018-05-02 08:38] LABS: BANDS 4 % (0-1); LYMPHS 14 % (21-51); SEGS 82 % (42-75)
[2018-05-02 08:39] LABS: AGAP 10; BUN 5 mg/dL (8-22); CALCIUM 9.5 mg/dL (8.8-10.2); CHLORIDE 99 mmol/L (98-107); COSMO 271; CREATININE 0.3 mg/dL (0.5-0.9); ESTIMATED GFR > 60; GLUCOSE 131 mg/dL (70-104); POTASSIUM 3.6 mmol/L (3.5-5.1); SODIUM 136 mmol/L (136-145); TCO2 27 mmol/L (25-35)
[2018-05-02] MEDS: NORVASC PO SCH (13:08)
[2018-05-02] MEDS: LACTULOSE PO SCH ×2 (13:08→21:43)
[2018-05-02] MEDS: DULCOLAX PR SCH ×2 (13:09→21:43)
[2018-05-02] MEDS ORDERED: CATAPRES PO SCH (13:15)
--- NOTE | 2018-05-02 13:40 | PROGRESS NOTE ---
DATE: 05/02/2018 INTERVAL HISTORY: No acute events. The patient continues to have nausea and vomiting, and she was not able to eat anything by mouth in the morning time. SUBJECTIVE: I have met the patient and her significant other at bedside. I answered all of the questions. I discussed with them about taking her medications as prescribed, avoiding constipation. I answered all of their questions currently. VITALS: Temperature 98.2 degrees, pulse 100, blood pressure 150/100, saturating 97% on room air. PHYSICAL EXAMINATION: General: Appears cachectic, not in any acute distress. She has hoarseness of her voice, which is normal for her. Lungs: Air entry bilaterally equal. No wheeze, rhonchi, crackles. Heart: S1, S2 normal. No murmur, rub, or gallop. Abdomen: Soft. Mild tenderness in epigastric region. Active bowel sounds. She is nauseous. Extremities: No lower extremity edema. She appears to have protein calorie malnutrition. LABS: Suggestive of no leukocytosis. Acceptable range of hemoglobin, hematocrit, and platelet count. Electrolytes suggestive of resolution of hypernatremia and hyperchloremia. MICROBIOLOGY: No blood culture growth to date. ASSESSMENT AND PLAN: 1. Acute encephalopathy on presentation, now resolved. It could be in the setting of intractable nausea and vomiting as she had exactly similar presentation a month prior. 2. Essential hypertension, currently uncontrolled. I will start the patient on her home amlodipine and clonidine. 3. History of perforated peptic ulcer disease, chronic constipation. Continue pantoprazole dose to intravenous twice daily. Continue patient on home lactulose and bisacodyl suppository. 4. Hyponatremia, hyperchloremia likely because of poor oral intake now and clinical volume depletion, now resolving. Continue D 5 half-normal saline until the patient's oral intake improves. 5. Scoliosis and chronic back pain. Continue patient on lidocaine patch. 6. Disposition: Patient remains inside the hospital for persistent nausea. If she starts feeling better and tolerating diet okay, my plan is to discharge her in the next 24 to 48 hours. cc: Richard Christensen MD
[2018-05-02] MEDS ORDERED: CARAFATE LIQUID PO SCH (14:00)
[2018-05-02] MEDS: LIDODERM TOP SCH (14:06)
[2018-05-02] MEDS: PROTONIX IV SCH (21:43)
[2018-05-02] MEDS: SODIUM CHLORIDE 0.9% INJ SCH (21:44)
[2018-05-03] MEDS: ZOFRAN IV PRN ×5 (03:25→23:14)
[2018-05-03] MEDS: LOVENOX SUBQ SCH (06:06)
[2018-05-03] MEDS: D5 1/2 NS 1,000 ML IV SCH ×2 (06:06→22:10)
--- NOTE | 2018-05-03 08:02 | EKG Report ---
Test Performed on : 05/03/2018 07:56:25 AM Test Reason : Evaluate for SVT Blood Pressure : / mmHG Vent. Rate : 077 BPM Atrial Rate : 077 BPM P-R Int : 152 ms QRS Dur : 096 ms QT Int : 440 ms P-R-T Axes : 075 062 086 degrees QTc Int : 497 ms Normal sinus rhythm. Nonspecific ST abnormality Prolonged QT Abnormal ECG No previous ECGs available Confirmed by Christelle ADAM, Jamil Murray ([id number]) on 05/04/2018 7:10:23 AM
--- NOTE | 2018-05-03 08:29 | PROGRESS NOTE ---
DATE: 05/03/2018 OVERNIGHT EVENTS: Ms. Pete had a run of soft supraventricular tachycardia, 30 beats one time and 20 beats another time at least. She did not have any chest pain or shortness of breath or palpitation. SUBJECTIVE: Patient states she continues to have vomiting. However, she has started having liquidy bowel movements and feeling better in the stomach. OBJECTIVE: Vital Signs: Currently vital signs with temperature of 98 degrees, pulse 83, blood pressure 170/101, saturating 97% on room air. General: On physical examination, appears cachectic, not in any acute distress. Hoarseness of her voice, which is normal for her. Lungs: Air entry bilaterally equal. No wheeze, rhonchi, crackles. Cardiovascular: S1, S2 normal. No murmur, rub, or gallop. Abdomen: Soft. No tenderness. Active bowel sounds. Abdomen appears scaphoid. Extremities: No lower extremity edema. She appears to have protein calorie malnutrition. LABS: No new labs today. MICROBIOLOGY: No blood culture growth to date. ASSESSMENT AND PLAN: 1. Acute encephalopathy on presentation in the setting of intractable nausea and vomiting, now resolved. 2. Essential hypertension. Continue patient on her home amlodipine. Stop clonidine and start patient on metoprolol considering supraventricular tachycardia, and to avoid excessive hypotension. 3. History of perforated gastric ulcer times 2 and gastric bypass surgery with current episode of nausea and vomiting. Continue pantoprazole intravenous twice daily. The patient had esophagogastroduodenoscopy in March 2018, which had suggested friable gastric mucosa and anastomotic stenosis at gastric bypass site. If her nausea and vomiting continues, I will consider Gastroenterology consultation. Continue Zofran as needed. 4. Severe constipation associated with opioid medication use at home. Continue patient on lactulose, bisacodyl suppository, now resolving. 5. Hyponatremia, hypochloremia and hypokalemia because of poor oral intake and clinical volume depletion, now improving. Follow up with basic metabolic panel. 6. Paroxysmal supraventricular tachycardia without any symptoms. I will start patient on metoprolol and follow up with electrocardiogram. 7. Chronic back pain associated with scoliosis. Continue patient on lidocaine patch and acetaminophen. 8. Disposition: The patient remains inside the hospital for persistent nausea and vomiting. Continue her on clear liquid diet. If her nausea and vomiting continues, I will consult Gastroenterology tomorrow. cc: Richard Christensen MD
[2018-05-03] MEDS: LIDODERM TOP SCH (08:59)
[2018-05-03] MEDS: LACTULOSE PO SCH ×2 (08:59→20:29)
[2018-05-03] MEDS: TYLENOL PO SCH ×3 (08:59→20:28)
[2018-05-03] MEDS: SODIUM CHLORIDE 0.9% INJ SCH ×2 (09:00→20:29)
[2018-05-03] MEDS: NORVASC PO SCH (09:00)
[2018-05-03] MEDS: PROTONIX IV SCH ×2 (09:00→20:29)
[2018-05-03] MEDS: LOPRESSOR PO SCH ×2 (09:00→20:29)
[2018-05-03] MEDS: DULCOLAX PR SCH ×2 (09:01→20:29)
[2018-05-03 10:18] LABS: AGAP 13; BUN 4 mg/dL (8-22); CALCIUM 9.3 mg/dL (8.8-10.2); CHLORIDE 102 mmol/L (98-107); COSMO 278; CREATININE 0.3 mg/dL (0.5-0.9); ESTIMATED GFR > 60; GLUCOSE 129 mg/dL (70-104); MAGNESIUM 1.8 mg/dL (1.5-2.7); SODIUM 140 mmol/L (136-145); TCO2 25 mmol/L (25-35)
[2018-05-03 10:47] LABS: POTASSIUM 2.4 mmol/L (3.5-5.1)
[2018-05-03] MEDS: POTASSIUM CHLORIDE 20 MEQ/SWI 20 MEQ/100 ML IVPB IV SCH ×2 (12:13→14:32)
[2018-05-03] MEDS: KLOR-CON PO SCH ×3 (12:13→20:28)
[2018-05-03] MEDS: APRESOLINE IV PRN (20:27)
[2018-05-04] MEDS: ZOFRAN IV PRN ×5 (03:32→21:57)
[2018-05-04] MEDS: TYLENOL PO SCH ×4 (03:32→21:51)
[2018-05-04] MEDS: APRESOLINE IV PRN ×2 (03:32→21:57)
[2018-05-04] MEDS: LOVENOX SUBQ SCH (05:39)
[2018-05-04 07:58] LABS: AGAP 12; BUN 3 mg/dL (8-22); CALCIUM 9.6 mg/dL (8.8-10.2); CHLORIDE 105 mmol/L (98-107); COSMO 279; CREATININE 0.4 mg/dL (0.5-0.9); ESTIMATED GFR > 60; GLUCOSE 116 mg/dL (70-104); POTASSIUM 4.3 mmol/L (3.5-5.1); SODIUM 141 mmol/L (136-145); TCO2 24 mmol/L (25-35)
[2018-05-04] MEDS: LIDODERM TOP SCH (09:48)
[2018-05-04] MEDS: LACTULOSE PO SCH ×2 (09:49→21:50)
[2018-05-04] MEDS: PROTONIX IV SCH (09:49)
[2018-05-04] MEDS: LOPRESSOR PO SCH ×2 (09:49→21:51)
[2018-05-04] MEDS: SODIUM CHLORIDE 0.9% INJ SCH (09:49)
[2018-05-04] MEDS: DULCOLAX PR SCH ×2 (09:49→21:51)
[2018-05-04] MEDS: NORVASC PO SCH (09:50)
--- NOTE | 2018-05-04 15:51 | PROGRESS NOTE ---
DATE: 05/04/2018 INTERVAL HISTORY: No acute events. EKG yesterday had suggested prolonged QT interval, and I advised her to not take amitriptyline that she was taking for her chronic back pain. Currently the patient is now significantly better. She has had significant bowel movements, and she is feeling better. I talked with her about stopping fluids, taking the Gastelum catheter out and starting her on GI soft diet, and she agreed to that. OBJECTIVE: Vital signs: Temperature 98, pulse 92, blood pressure 140/90, saturating 98% on room air. Physical examination is unchanged. She appears cachectic, not in acute distress. She has hoarseness of her voice which is normal for her. Lungs with air entry bilaterally equal. No wheeze, rhonchi or crackles. S1 and S2 normal. No murmur, rub or gallop. Abdomen is soft, nontender. Active bowel sounds. Abdomen appears scaphoid. Extremities: No lower extremity edema. She has protein calorie malnutrition. DIAGNOSTIC DATA: Labs suggest resolution of hypokalemia. Normal kidney function. EKG had prolongation of QTC, it did have normal sinus rhythm, though. ASSESSMENT AND PLAN: 1. Intractable nausea and vomiting with history of perforated gastric ulcer requiring gastric bypass surgery in the past. Continue proton pump inhibitors and change it to p.o. omeprazole twice daily. She had EGD in 2019 which had suggested friable gastric mucosa and anastomotic stenosis at gastric bypass site. She should follow up with GI as an outpatient. Continue Zofran as needed. Advise diet to GI soft. 2. Acute encephalopathy related to intractable nausea and vomiting on presentation, resolved. 3. Essential hypertension. Currently in acceptable range. Continue home amlodipine and continue the patient on metoprolol, as she had episode of supraventricular tachycardia. 4. Supraventricular tachycardia and prolonged QTC. Continue carvedilol. Stop amitriptyline. 5. Severe constipation associated with opioid use at home. Continue the patient on lactulose with Bisacodyl suppository, now resolving. 6. Electrolyte abnormalities, resolved. 7. Chronic back pain. Continue lidocaine patch and acetaminophen. 8. Disposition. The patient remains inside the hospital. Plan is to discharge her tomorrow. cc: MD DAVID Braxton
[2018-05-04] MEDS ORDERED: MELATONIN PO SCH (21:00)
[2018-05-04] MEDS: PRILOSEC PO SCH (21:52)
[2018-05-05] MEDS: ZOFRAN IV PRN ×2 (02:32→08:41)
[2018-05-05] MEDS: TYLENOL PO SCH ×2 (03:37→08:30)
[2018-05-05] MEDS: PRILOSEC PO SCH (06:32)
[2018-05-05] MEDS: LOVENOX SUBQ SCH (06:33)
[2018-05-05 07:52] VITALS: BP 141/84
[2018-05-05] MEDS: LACTULOSE PO SCH (08:29)
[2018-05-05] MEDS: NORVASC PO SCH (08:30)
[2018-05-05] MEDS: DULCOLAX PR SCH (08:30)
[2018-05-05] MEDS: LOPRESSOR PO SCH (08:30)
[2018-05-05] MEDS: LIDODERM TOP SCH (08:33)
--- NOTE | 2018-05-05 10:59 | DISCHARGE SUMMARY ---
ADMISSION DATE: 04/30/2018 DISCHARGE DATE: 05/05/2018 DISCHARGE DIAGNOSES: 1. Toxic metabolic acute encephalopathy. 2. Intractable nausea and vomiting. 3. Essential hypertension. 4. Supraventricular tachycardia and prolonged QTc. 5. Severe constipation associated with poor p.o. intake and scoliosis. 6. Hypokalemia. OTHER DIAGNOSES: 1. History of essential hypertension. 2. History of perforated gastric ulcer. 3. History of multiple episodes of nausea and vomiting with encephalopathy related to that. 4. History of superficial erosive gastritis as evidenced on esophagogastroduodenoscopy in March 2018, with stenosis at gastric anastomotic site. 5. Current episode of fluid volume depletion. 6. Chronic back pain because of scoliosis. 7. Chronic constipation. CONSULTATION DURING HOSPITAL ADMISSION: None. DISCHARGE MEDICATIONS: Sucralfate 1 g p.o. q.6 hours, amlodipine 5 mg daily, clonidine 0.1 mg daily, lactulose 15 mL p.o. b.i.d., melatonin 5 mg at nighttime 10 tablets, bisacodyl 10 mg per rectal b.i.d., lidocaine 5% patch 1 patch topical daily 10 patches, metoprolol 12.5 mg p.o. b.i.d. 120 tablets have been prescribed, omeprazole 40 mg b.i.d. 120 capsules have been prescribed. VITALS: At time of discharge: Temperature 98.2, pulse 84 per minute, respiratory rate 18 per minute, blood pressure 140/84, saturation 99% on room air. PHYSICAL EXAMINATION: General: Patient appeared cachectic and she did have protein calorie malnutrition. Otherwise, she was alert, oriented, appears pleasant and wanted to go home. She tolerated softer diet well. Oral cavity moist. Lungs: Air entry bilaterally was no wheezing, rhonchi or crackles. Cardiovascular: S1, S2 normal. No murmur, rub or gallop. Abdomen: Soft, nontender. Active bowel sounds, though abdomen had scaphoid appearance. She has scoliosis. No lower extremity edema. LABS: During hospital admission: Her WBC at the time of discharge was 10.6, her hemoglobin was 15, her platelet count was 322,000. She had normal coags. She did have episode of hypokalemia with potassium of 2.4, which was corrected at the time of discharge to 4.3. Her kidney function was normal. She did have hypernatremia and hyperchloremia during hospital admission because of volume depletion, which was corrected at the time of discharge. Microbiology blood culture did not have any growth. IMAGING: During hospital admission: Chest x-ray on admission did not have any acute abnormality. Head CT on admission had no acute abnormalities. Brain MRI on admission was a technically suboptimal study, but there was no evidence of acute disease. Abdominal x-ray on 05/01 had a possible ileus; however, patient did not have nausea or vomiting. She did not require NG tube. HOSPITAL COURSE SUMMARY: Ms. Pete is a 58-year-old lady with multiple previous admission because of nausea and vomiting, came in with complaints of bizarre behavior of about 2 days' duration. She also had nausea and vomiting. She was admitted and was started on intravenous fluid resuscitation for volume depletion. During hospital admission she was also managed with intravenous Protonix and she was she was initially kept on clear liquid diet with symptomatic treatment, intravenous fluids, proton pump inhibitors. Her acute encephalopathy has slowly started resolving. Brain imaging was unremarkable. At the time of discharge, her nausea, vomiting, abdominal had disappeared on proton pump inhibitors b.i.d. However, she did develop episode of supraventricular tachycardia and she was started on metoprolol, following which she did not have such episode. She was hemodynamically stable to be discharged. Hospital course problem humphrey: 1. Intractable nausea and vomiting with history of perforated gastric ulcer requiring gastric bypass surgery in the past. She was continued on proton pump inhibitors b.i.d. Her EGD was done in March 2018, which had superficial erosive gastritis and anastomotic site stenosis. She was also discharged on proton pump inhibitors b.i.d. with sucralfate. 2. Acute encephalopathy related to intractable nausea and vomiting on presentation was resolved at the time of discharge. 3. Essential hypertension. She was continued on home amlodipine and clonidine and was started on metoprolol for supraventricular tachycardia. 4. Supraventricular tachycardia and prolonged QTc. The patient had 2 days of multiple episodes of supraventricular tachycardia and was started on metoprolol, following which she did not develop that. She was also taking amitriptyline at home and she had QTc in excess of 490 millisecond, so amitriptyline was stopped. 5. For her severe constipation she was continued on lactulose and bisacodyl suppositories. 6. Chronic back pain was managed with lidocaine patch and acetaminophen. DISPOSITION: Patient will be discharged home. She has been tolerating soft diet well. Plan of care was discussed with her. TIME SPENT: More than 30 minutes were spent in discharging this patient. cc: Richard Christensen MD MTDD
== END 2018-05-05 10:52 | disposition home or self-care (01) | DRG 640 ==
LOC: ED 13:10 → ICU 20:01 → SUATTDRO 20:01 → 3N 05-01 15:14
PROVIDERS: ATTEND Internal Medicine
CPT/HCPCS: 51702; 70450; 70553; 71010; 71045; 74019; 74020; 80048; 80053; 80101; 80301; 80307; 80320; 80324; 80345; 80346; 80353; 80358; 80361; 80365; 81001; 82055; 82140; 82607; 82746; 82805; 82948; 83605; 83735; 83880; 83992; 84443; 84484; 85025; 85610; 85651; 85730; 86140; 86592; 87040; 93005; 93010; 96372; 96374; 96375; 96376; 97162; 97530; 99285; A9270; A9579; C9113; G0431; G0434; G0479; G0480; G6040; J0360; J1200; J1630; J1650; J2060; J2405; J3480; J3486; J7120; S0164; XXXXX

== ENCOUNTER 2018-10-18 14:49 | Inpatient (IN) ==
--- NOTE | 2018-10-18 15:35 | Diag Imaging Result Doc PS360 ---
EXAM: CT HEAD W/O CONTRAST 10/18/2018 HISTORY: ams TECHNIQUE: This exam was performed using automated exposure control, adjustment of mA or kV according to patient size, and/or use of iterative reconstruction technique. COMMENT: There is no evidence of mass effect, bleed, or abnormal extra-axial fluid collection. The visualized paranasal sinuses are clear. The calvarium is intact. Compared to 05/25/2018 the appearance of the brain has not changed significantly. IMPRESSION: No evidence of acute intracranial disease. Electronically signed by Fam Robertson 10/18/2018 3:32 PM
[2018-10-18 16:22] LABS: BASO# 0.02 X1000 (0.0-0.2); BASO% 0.3 % (0.0-0.8); EOS# 0.09 X1000 (0.0-0.7); EOS% 1.2 % (0.0-10.0); HEMATOCRIT 35.5 % (37.0-47.0); HEMOGLOBIN 11.6 g/dL (12.0-16.0); IMM GRAN# 0.02 X1000 (0.0-0.04); IMM GRAN% 0.3 % (0.0-0.5); LYMPH# 1.69 X1000 (1.2-3.4); LYMPH% 22.3 % (20.5-51.1); MCH 33.3 PG (27-31); MCHC 32.7 g/dL (33-37); MONO% 6.6 % (1.7-9.3); MPV 11.2 FL (7.4-10.4); NEUT# 5.26 X1000 (1.4-6.5); NEUT% 69.3 % (42.2-75.2); PLT 165 X1000 (130-400); RBC 3.48 XMIL (4.2-5.4); RDW 16.4 % (11.5-14.5); WBC 7.58 X1000 (4.8-10.8)
--- NOTE | 2018-10-18 16:32 | EKG Report ---
Test Performed on : 10/18/2018 4:25:19 PM Test Reason : POSS OD Blood Pressure : / mmHG Vent. Rate : 046 BPM Atrial Rate : 046 BPM P-R Int : 184 ms QRS Dur : 088 ms QT Int : 530 ms P-R-T Axes : 068 040 066 degrees QTc Int : 463 ms Sinus bradycardia. Otherwise normal ECG When compared with ECG of 11-SEP-2018 17:17, (Unconfirmed) No significant change was found Unconfirmed Result
[2018-10-18] MEDS ORDERED: NARCAN IV ONE ×4 (16:41→22:40)
[2018-10-18 16:48] LABS: URINE SOURCE CLEAN CATCH
[2018-10-18 16:51] LABS: BILIRUBIN URINE NEGATIVE (NEGATIVE); BLOOD URINE NEGATIVE (NEGATIVE); COLOR YELLOW; GLUCOSE URINE NEGATIVE (NEGATIVE); INR 0.95; KETONE URINE NEGATIVE (NEGATIVE); LEUKOCYTES URINE NEGATIVE (NEGATIVE); NITRITE URINE NEGATIVE (NEGATIVE); PROTEIN URINE 50 mg/dL (NEGATIVE); PROTIME 12.7 Seconds (11.0-16.0); SP GRAVITY URINE 1.036; TURBIDITY URINE CLEAR (CLEAR); UR EPITHELIAL CELLS <10 /HPF (<10); URINE BACTERIA NEGATIVE /HPF; URINE RBC <10 /HPF (<10); URINE WBC <10 /HPF (<10); UROBILINOGEN URINE 2 mg/dL (NORMAL)
--- NOTE | 2018-10-18 16:51 | PROVIDER DOCUMENTATION ---
[id number] Abuse/Overdose - General Chief Complaint: Ingestion,Accidental Stated Complaint: AMS Time Seen by Provider: 10/18/18 16:00 Source: family Allergies/Adverse Reactions: Allergies Allergy/AdvReac Type Severity Reaction Status Date / Time promethazine HCl * Allergy Intermediate HALLUCINATI Verified 10/18/18 16:48 [From Phenergan] ONS Home Medications: Home Medication List Medication Instructions Recorded Confirmed Last Taken Type Clonidine [Catapres] 0.1 mg PO DAILY 10/23/17 10/18/18 10/18/18 History Lactulose 2 dose PO BID 03/12/18 10/18/18 10/18/18 History Amlodipine Besylate [Norvasc] 5 mg PO DAILY 05/01/18 10/18/18 10/18/18 History Sucralfate [Carafate Liquid] 1 gm PO Q6HR 05/01/18 10/18/18 10/18/18 History Bisacodyl [Dulcolax] 10 mg [place] BID supp 05/05/18 10/18/18 10/18/18 Rx Melatonin 5 mg PO QHS #10 tab 05/05/18 10/18/18 10/18/18 Rx Metoprolol [Lopressor] 12.5 mg PO BID #120 tab 05/05/18 10/18/18 10/18/18 Rx Omeprazole 40 mg PO BID #120 capsule. 05/05/18 10/18/18 10/18/18 Rx Baclofen 10 mg PO BID 05/25/18 10/18/18 10/18/18 History Gabapentin 600 mg PO TID 05/25/18 10/18/18 10/18/18 History Losartan [Cozaar] 100 mg PO DAILY 05/25/18 10/18/18 10/18/18 History - History of Present Illness-Drug/Alcohol Nature of Presenting Problem: patient is a 58 yowf presenting to the ED today for possible OD. her reports she took 3 of her 7.5 norcos throughout the day, as prescribed, and she is now unresponsive. patient arouses to sternal rub. reports patient only has half of her stomach and liver. patient's reports she took her medications as prescribed, but since she only has half a stomach and liver the medication "may have not absorbed right" so she could have unintentionally overdosed. patient has longstanding history of the same. This episode of drinking or use began:: just prior to arrival Severity: reports: moderate Psychiatric Complaints: reports: ingestion ([place] 7.5) Any injuries associated with this episode of intoxication?: No Similar Symptoms Previously?: Yes Recently seen or treated by another doctor?: No - Overdose Intentional drug overdose?: No List substance(s) ingested.: [place] 7.5 How did the ingestion/other suicidal act come to attention?: reports patient took her medications as prescribed. Suicide Risk Assessment: chronic illness Clinician's estimation of suicide risk?: low risk Review of Systems - Adult - REVIEW OF SYSTEMS - ADULT Constitutional: reports: no symptoms reported. denies: chills, fever Eyes: reports: no symptoms reported Ears, Nose, Mouth & Throat: reports: no symptoms reported Cardiovascular: reports: no symptoms reported. denies: chest pain, palpitations, syncope Respiratory: reports: no symptoms reported. denies: cough, shortness of breath, wheezing Gastrointestinal: reports: no symptoms reported. denies: abdominal pain, diar kishore, nausea, vomiting Genitourinary: reports: no symptoms reported Musculoskeletal: reports: no symptoms reported Integumentary: reports: no symptoms reported Neurological: reports: no symptoms reported. denies: dizziness/vertigo, headache/migraines Endocrine: reports: no symptoms reported Hematologic/Lymphatic: reports: no symptoms reported Allergic/Immunologic: reports: no symptoms reported All Other Systems: Reviewed and Negative Past History - Adult - PAST MEDICAL HISTORY-ADULT Review of Records: reports: Old Records Reviewed, Nursing Assessment Review, Medications Reviewed Major Childhood Illnesses: reports: denies history Cardiovascular: reports: HTN, hyperlipidemia Respiratory: reports: COPD, sleep apnea Gastrointestinal: reports: GERD, liver disease Obstetrical/Gynecological: reports: denies history Genitourinary: reports: denies history Musculoskeletal: reports: chronic pain, other (scoliosis) Neurological: reports: denies history Endocrine/Immune: reports: denies history Other Conditions: reports: denies history - PRIOR SURGERIES/PROCEDURES Surgical/Procedure History: reports: cholecystectomy, bowel surgery, back/neck, other (2 PERFARATED ULCERS) - IMMUNIZATION STATUS Childhood Immunizations: See Nurse Assessment Flu Vaccine: See Nurse Assessment - FAMILY HISTORY Family History: reviewed, not pertinent Physical Exam-General - PHYSICAL EXAM-ADULT Initial Vital Signs Reviewed: Yes - CONSTITUTIONAL General Appearance: thin, lethargic - EYES Eyes: PERRL/EOMI - HEAD, EARS, NOSE, MOUTH & THROAT HENMT: normocephalic/atraumatic, moist mucous membranes, normal ENT inspection - RESPIRATORY Respiratory: chest non-tender, lungs clear, normal breath sounds, no pleuratic chest pain, no respiratory distress, no accessory muscle use - CARDIOVASCULAR Cardiovascular: normal peripheral pulses, regular rate, rhythm, no edema, no JVD - GASTROINTESTINAL (ABDOMEN) Abdominal Exam: non tender, soft, abnormal bowel sounds (hypoactive) - LYMPHATIC Lymphatic: no adenopathy - MUSCULOSKELETAL Back Exam: normal inspection, no CVA tenderness, no vertebral tenderness Extremity: normal inspection - SKIN Integumentary: warm/dry, pallor - PSYCHIATRIC Psych/Mental Status: other (unresponsive) Progress - PLAN OF CARE/RESULTS Progress/Plan/Lab Results: Vital Signs - 8 hr 10/18/18 17:10 10/18/18 17:20 10/18/18 17:30 Pulse Rate 43 L 44 L 48 L Respiratory Rate 13 12 13 Blood Pressure O2 Sat by Pulse Oximetry 97 98 97 10/18/18 17:40 10/18/18 17:45 10/18/18 17:50 Pulse Rate 42 L 42 L 44 L Respiratory Rate 12 12 13 Blood Pressure 109/70 O2 Sat by Pulse Oximetry 98 98 98 10/18/18 18:00 10/18/18 18:10 10/18/18 18:20 Pulse Rate 43 L 42 L 42 L Respiratory Rate 15 12 11 L Blood Pressure O2 Sat by Pulse Oximetry 98 98 99 10/18/18 18:30 10/18/18 18:40 10/18/18 18:50 Pulse Rate 42 L 41 L 43 L Respiratory Rate 12 15 14 Blood Pressure O2 Sat by Pulse Oximetry 98 97 99 10/18/18 19:00 10/18/18 19:10 10/18/18 19:12 Pulse Rate 42 L 42 L 44 L Respiratory Rate 14 14 14 Blood Pressure 135/80 126/79 O2 Sat by Pulse Oximetry 98 99 10/18/18 19:13 10/18/18 19:20 10/18/18 19:22 Pulse Rate 44 L 44 L 45 L Respiratory Rate 15 19 15 Blood Pressure 131/83 O2 Sat by Pulse Oximetry 99 97 98 10/18/18 19:30 10/18/18 19:32 10/18/18 19:40 Pulse Rate 45 L 45 L 44 L Respiratory Rate 13 12 14 Blood Pressure 123/78 O2 Sat by Pulse Oximetry 98 99 99 10/18/18 19:42 10/18/18 19:50 10/18/18 19:52 Pulse Rate 45 L 44 L 45 L Respiratory Rate 13 12 13 Blood Pressure 116/79 133/76 O2 Sat by Pulse Oximetry 98 99 97 10/18/18 20:00 10/18/18 20:02 10/18/18 20:10 Pulse Rate 41 L 43 L 41 L Respiratory Rate 14 13 14 Blood Pressure 132/82 O2 Sat by Pulse Oximetry 99 98 100 10/18/18 20:12 10/18/18 20:20 10/18/18 20:22 Pulse Rate 42 L 43 L 41 L Respiratory Rate 14 12 13 Blood Pressure 148/88 136/87 O2 Sat by Pulse Oximetry 97 99 99 10/18/18 20:30 10/18/18 20:32 10/18/18 20:40 Pulse Rate 43 L 47 L 43 L Respiratory Rate 14 14 11 L Blood Pressure 133/86 O2 Sat by Pulse Oximetry 99 98 98 10/18/18 20:42 10/18/18 20:50 10/18/18 21:00 Pulse Rate 44 L 43 L 66 Respiratory Rate 16 17 16 Blood Pressure 142/90 O2 Sat by Pulse Oximetry 100 98 99 10/18/18 21:03 10/18/18 21:10 10/18/18 21:12 Pulse Rate 51 L 56 L 56 L Respiratory Rate 13 22 19 Blood Pressure 178/94 174/95 O2 Sat by Pulse Oximetry 99 99 100 10/18/18 21:20 10/18/18 21:22 10/18/18 21:30 Pulse Rate 52 L 51 L 47 L Respiratory Rate 12 14 15 Blood Pressure 161/103 O2 Sat by Pulse Oximetry 100 99 97 10/18/18 21:32 10/18/18 21:40 10/18/18 21:42 Pulse Rate 47 L 46 L 44 L Respiratory Rate 9 L 6 L 7 L Blood Pressure 155/90 138/88 O2 Sat by Pulse Oximetry 98 100 100 10/18/18 21:50 10/18/18 21:53 10/18/18 22:00 Pulse Rate 61 58 L 45 L Respiratory Rate 16 9 L 13 Blood Pressure 187/95 O2 Sat by Pulse Oximetry 100 98 98 10/18/18 22:03 10/18/18 22:10 10/18/18 22:12 Pulse Rate 44 L 45 L 45 L Respiratory Rate 3 L 7 L 9 L Blood Pressure 150/92 132/81 O2 Sat by Pulse Oximetry 100 99 97 10/18/18 22:20 10/18/18 22:22 Pulse Rate 44 L 43 L Respiratory Rate 7 L 9 L Blood Pressure 142/84 O2 Sat by Pulse Oximetry 98 98 Laboratory Results - last 24 hr 10/18/18 10/18/18 10/18/18 15:50 15:50 15:50 WBC 7.58 RBC 3.48 L Hgb 11.6 L Hct 35.5 L MCV 102.0 H MCH 33.3 H MCHC 32.7 L RDW Std Deviation 16.4 H Plt Count 165 MPV 11.2 H Immature Gran % (Auto) 0.3 Neut % (Auto) 69.3 Lymph % (Auto) 22.3 [place] % (Auto) 6.6 Eos % (Auto) 1.2 Baso % (Auto) 0.3 Immature Gran # (Auto) 0.02 Neut # (Auto) 5.26 Lymph # (Auto) 1.69 [place] # (Auto) 0.50 Eos # (Auto) 0.09 Baso # (Auto) 0.02 PT 12.7 INR 0.95 PTT (Actin FS) 27.9 Sodium 144 Potassium 2.7 L Chloride 108 H Carbon Dioxide 25 Anion Gap 11 BUN 9 Creatinine 0.6 Estimated GFR/1.73 m2 > 60 BUN/Creatinine Ratio 15 Glucose 113 H POC Glucose Calculated Osmolality 286 Calcium 8.5 L Magnesium Total Bilirubin 0.25 AST 45 H ALT 37 H Alkaline Phosphatase 107 H Ammonia Creatine Kinase Troponin T Total Protein 5.5 L Albumin 3.2 L Globulin 2.3 Albumin/Globulin Ratio 1.4 Urine Source Urine Color Urine Turbidity Urine pH Ur Specific [place] Urine Protein Ur Glucose (Stick) Ur Ketones (Stick) Urine Blood Urine Nitrite Urine Bilirubin Urobilinogen Dipstick Urine Leukocytes Urine WBC (Auto) Urine RBC (Auto) U Epithel Cells (Auto) Urine Bacteria (Auto) Salicylates Urine Opiates Screen Ur Oxycodone Screen Ur Methadone, Qual Acetaminophen Ur Barbiturates Screen Ur Phencyclidine Scrn Ur Amphetamines Screen U Benzodiazepines Scrn Urine Cocaine Screen U Cannabinoids Screen Plasma/Serum Ethyl Alc 10/18/18 10/18/18 10/18/18 15:50 15:50 15:50 WBC RBC Hgb Hct MCV MCH MCHC RDW Std Deviation Plt Count MPV Immature Gran % (Auto) Neut % (Auto) Lymph % (Auto) [place] % (Auto) Eos % (Auto) Baso % (Auto) Immature Gran # (Auto) Neut # (Auto) Lymph # (Auto) [place] # (Auto) Eos # (Auto) Baso # (Auto) PT INR PTT (Actin FS) Sodium Potassium Chloride Carbon Dioxide Anion Gap BUN Creatinine Estimated GFR/1.73 m2 BUN/Creatinine Ratio Glucose POC Glucose Calculated Osmolality Calcium Magnesium Total Bilirubin AST ALT Alkaline Phosphatase Ammonia Creatine Kinase Troponin T Total Protein Albumin Globulin Albumin/Globulin Ratio Urine Source CLEAN CATCH Urine Color YELLOW Urine Turbidity CLEAR Urine pH 6.0 Ur Specific [place] 1.036 Urine Protein 50 A Ur Glucose (Stick) NEGATIVE Ur Ketones (Stick) NEGATIVE Urine Blood NEGATIVE Urine Nitrite NEGATIVE Urine Bilirubin NEGATIVE Urobilinogen Dipstick 2 A Urine Leukocytes NEGATIVE Urine WBC (Auto) <10 Urine RBC (Auto) <10 U Epithel Cells (Auto) <10 Urine Bacteria (Auto) NEGATIVE Salicylates < 3.00 L Urine Opiates Screen PRESUMPTIVE POSITIVE A Ur Oxycodone Screen NONE DETECTED Ur Methadone, Qual NONE DETECTED Acetaminophen 5.1 L Ur Barbiturates Screen NONE DETECTED Ur Phencyclidine Scrn NONE DETECTED Ur Amphetamines Screen NONE DETECTED U Benzodiazepines Scrn NONE DETECTED Urine Cocaine Screen NONE DETECTED U Cannabinoids Screen NONE DETECTED Plasma/Serum Ethyl Alc 10/18/18 10/18/18 10/18/18 15:50 15:50 15:50 WBC RBC Hgb Hct MCV MCH MCHC RDW Std Deviation Plt Count MPV Immature Gran % (Auto) Neut % (Auto) Lymph % (Auto) [place] % (Auto) Eos % (Auto) Baso % (Auto) Immature Gran # (Auto) Neut # (Auto) Lymph # (Auto) [place] # (Auto) Eos # (Auto) Baso # (Auto) PT INR PTT (Actin FS) Sodium Potassium Chloride Carbon Dioxide Anion Gap BUN Creatinine Estimated GFR/1.73 m2 BUN/Creatinine Ratio Glucose POC Glucose Calculated Osmolality Calcium Magnesium 1.9 Total Bilirubin AST ALT Alkaline Phosphatase Ammonia Creatine Kinase 24 Troponin T Total Protein Albumin Globulin Albumin/Globulin Ratio Urine Source Urine Color Urine Turbidity Urine pH Ur Specific [place] Urine Protein Ur Glucose (Stick) Ur Ketones (Stick) Urine Blood Urine Nitrite Urine Bilirubin Urobilinogen Dipstick Urine Leukocytes Urine WBC (Auto) Urine RBC (Auto) U Epithel Cells (Auto) Urine Bacteria (Auto) Salicylates Urine Opiates Screen Ur Oxycodone Screen Ur Methadone, Qual Acetaminophen Ur Barbiturates Screen Ur Phencyclidine Scrn Ur Amphetamines Screen U Benzodiazepines Scrn Urine Cocaine Screen U Cannabinoids Screen Plasma/Serum Ethyl Alc 10/18/18 10/18/18 10/18/18 15:50 15:52 16:48 WBC RBC Hgb Hct MCV MCH MCHC RDW Std Deviation Plt Count MPV Immature Gran % (Auto) Neut % (Auto) Lymph % (Auto) [place] % (Auto) Eos % (Auto) Baso % (Auto) Immature Gran # (Auto) Neut # (Auto) Lymph # (Auto) [place] # (Auto) Eos # (Auto) Baso # (Auto) PT INR PTT (Actin FS) Sodium Potassium Chloride Carbon Dioxide Anion Gap BUN Creatinine Estimated GFR/1.73 m2 BUN/Creatinine Ratio Glucose POC Glucose 106 H Calculated Osmolality Calcium Magnesium Total Bilirubin AST ALT Alkaline Phosphatase Ammonia 36 Creatine Kinase Troponin T < 0.010 Total Protein Albumin Globulin Albumin/Globulin Ratio Urine Source Urine Color Urine Turbidity Urine pH Ur Specific [place] Urine Protein Ur Glucose (Stick) Ur Ketones (Stick) Urine Blood Urine Nitrite Urine Bilirubin Urobilinogen Dipstick Urine Leukocytes Urine WBC (Auto) Urine RBC (Auto) U Epithel Cells (Auto) Urine Bacteria (Auto) Salicylates Urine Opiates Screen Ur Oxycodone Screen Ur Methadone, Qual Acetaminophen Ur Barbiturates Screen Ur Phencyclidine Scrn Ur Amphetamines Screen U Benzodiazepines Scrn Urine Cocaine Screen U Cannabinoids Screen Plasma/Serum Ethyl Alc 10/18/18 10/18/18 10/18/18 17:49 21:00 21:05 WBC RBC Hgb Hct MCV MCH MCHC RDW Std Deviation Plt Count MPV Immature Gran % (Auto) Neut % (Auto) Lymph % (Auto) [place] % (Auto) Eos % (Auto) Baso % (Auto) Immature Gran # (Auto) Neut # (Auto) Lymph # (Auto) [place] # (Auto) Eos # (Auto) Baso # (Auto) PT INR PTT (Actin FS) Sodium Potassium Chloride Carbon Dioxide Anion Gap BUN Creatinine Estimated GFR/1.73 m2 BUN/Creatinine Ratio Glucose POC Glucose 92 93 Calculated Osmolality Calcium Magnesium Total Bilirubin AST ALT Alkaline Phosphatase Ammonia Creatine Kinase Troponin T Total Protein Albumin Globulin Albumin/Globulin Ratio Urine Source Urine Color Urine Turbidity Urine pH Ur Specific [place] Urine Protein Ur Glucose (Stick) Ur Ketones (Stick) Urine Blood Urine Nitrite Urine Bilirubin Urobilinogen Dipstick Urine Leukocytes Urine WBC (Auto) Urine RBC (Auto) U Epithel Cells (Auto) Urine Bacteria (Auto) Salicylates Urine Opiates Screen Ur Oxycodone Screen Ur Methadone, Qual Acetaminophen 1.9 L Ur Barbiturates Screen Ur Phencyclidine Scrn Ur Amphetamines Screen U Benzodiazepines Scrn Urine Cocaine Screen U Cannabinoids Screen Plasma/Serum Ethyl Alc Orders Category Date [facility] Routine AdmDCTranf 10/18/18 22:52 Active Activity - Strict Bedrest ORDERED Care 10/18/18 22:52 Active FSBS/Accucheck Result NOW Care 10/18/18 20:35 Completed Neurological Check Q 4-HR ASSESS Care 10/18/18 22:52 Active Vital Signs Order Q 4-HR ASSESS Care 10/18/18 22:52 Active Z-Document. for Tele Applied ORDERED Care 10/18/18 22:52 Completed NPO Diet 10/18/18 22:52 Active CHEST-PORTABLE [RAD] Stat Exams 10/18/18 20:[address] HEAD W/O CONTRAST [CT] Stat Exams 10/18/18 14:56 Completed ACETAMINOPHEN [TDM] Stat Lab 10/18/18 15:50 Completed ACETAMINOPHEN [TDM] Stat Lab 10/18/18 21:05 Completed ALCOHOL BLOOD Stat Lab 10/18/18 15:50 Completed AMMONIA [CHEM] Stat Lab 10/18/18 16:48 Completed CBC WITH ELECTRONIC DIFF [HEME] Stat Lab 10/18/18 15:50 Completed CK PROFILE [SP CHEM] Stat Lab 10/18/18 15:50 Completed COMPREHENSIVE METABOLIC PANEL [CHEM] Stat Lab 10/18/18 15:50 Completed MAGNESIUM [CHEM] Stat Lab 10/18/18 15:50 Completed PROTIME WITH INR [COAG] Stat Lab 10/18/18 15:50 Completed PTT [COAG] Stat Lab 10/18/18 15:50 Completed SALICYLATES [TDM] Stat Lab 10/18/18 15:50 Completed TROPONIN T Stat Lab 10/18/18 15:50 Completed URINALYSIS W/POSS RFLX CULT [URINALYSIS] Stat Lab 10/18/18 15:50 Completed URINE DRUG SCREEN Stat Lab 10/18/18 15:50 Completed 0.9% Sodium Chloride Inj [Ns] 500 ml Med 10/18/18 20:23 Discontinued IV 999 mls/hr Naloxone [Narcan] Med 10/18/18 16:41 Discontinued 0.4 mg IV NOW ONE Naloxone [Narcan] Med 10/18/18 20:33 Discontinued 0.4 mg IV NOW ONE Naloxone [Narcan] Med 10/18/18 17:34 Discontinued 2 mg IV NOW ONE Ns + KCl 40 Meq 1,000 ml Med 10/18/18 20:30 Discontinued IV 75 mls/hr Potassium Chloride 60 meq Med 10/18/18 20:33 Discontinued 0.9% Sodium Chloride Inj [Ns] 500 ml IV ONCE Oxygen Device Routine Oth 10/18/18 22:52 Active Telemetry [OM.EQ] Routine Oth 10/18/18 22:52 Active EKG [EKG] Stat Ther 10/18/18 16:30 Draft Transfer/Admit Order [TRANSFER] Routine Transfer 10/18/18 21:26 Completed discussed plan of care with Dr. Ignacio- he agrees with plan of care and has no further suggestions at this time. family told nurse patient was having a "hard time saying what she wanted to say" yesterday afternoon, lastnight and this morning. then patient became unresponsive and he called EMS. 1829- spoke with hospitalist [employer]- she told me the hospitalist has accepted the patient and he will come talk to me about details. 1899- paged hospitalist about patient. 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 waiting to hear from them to tell about patient details. Result Diagrams: 10/18/18 15:50 10/18/18 15:50 - REASSESSMENT Reassessment #1 Time Reassessed: 19:50 Status: unchanged - EKG 1 Time of EKG reading by physician:: 16:35 EKG Read and Signed by:: Bora Ignacio EKG Interpretation (*Must complete 3 of following elements*): Abnormal Rate: 46 Rhythm: sinus [place]: normal QRS: normal [place] Interval: normal ST Wave: normal - CT/MRI 1 CT Study: Head Impression: See EMR Report (Signed EXAM: CT HEAD W/O CONTRAST 10/18/2018 HISTORY: ams TECHNIQUE: This exam was performed using automated exposure control, adjustment of mA or kV according to patient size, and/or use of iterative reconstruction technique. COMMENT: There is no evidence of mass effect, bleed, or abnormal extra-axial fluid collection. The visualized para nasal sinuses are clear. The calvarium is intact. Compared to 05/25/2018 the appearance of the brain has not changed significantly. IMPRESSION: No evidence of acute intracranial disease. Electronically signed by Fam Robertson 10/18/2018 3:32 PM 10/18/18 1532 Interpreting Physician: Fam Robertson MD Dictated Date/Time: 10/18/18 1531 cc: Bora Ignacio MD; Petr Cardenas MD) - CONSULTS/PCP/HOSPITALIST Notification #1 *Consult/PCP/Hospitalist*: Dr. Vargas Time Discussed: 20:15 Reason/Comments: admit Consult Disposition: Will see in ED, Admit Departure - Departure Date of Disposition Decision: 10/18/18 Time of Disposition Decision: 20:00 DIAGNOSIS: Unresponsive Disposition: ADMITTED INPATIENT 09 Certified Medical Emergency: Emergent Condition: Fair - Critical Care Note This patient required my direct & personal management of CC.: No Attestation - Physician/ DIAMANTE Attestation Patient care was provided by Advanced Practice Provider:: Yes Advanced Practice Provider:: Alyssa Morse Advanced Practice Provider documentation review:: The Mid-level provider documentation, treatment plan and medical decision making was reviewed by the physician who agrees with all treatment and medical decision making by the [facility]. The physician spent face to face time with patient:: No Advanced Practice Provider documentation review:: Supervising physician onsite and consulted in the evaluation and care of this patient. The physician did not have a face to face encounter with the patient.
[2018-10-18 16:52] LABS: PTT 27.9 Seconds (22.3-41.8)
[2018-10-18 16:54] LABS: AGAP 11; ALB/GLOB RATIO 1.4; ALBUMIN 3.2 g/dL (3.5-5.0); ALKALINE PHOSPHATASE 107 U/L (32-104); BUN 9 mg/dL (8-22); CALCIUM 8.5 mg/dL (8.8-10.2); CHLORIDE 108 mmol/L (98-107); COSMO 286; CREATININE 0.6 mg/dL (0.5-0.9); ESTIMATED GFR > 60; GLUCOSE 113 mg/dL (70-104); GOT 45 U/L (10-30); GPT 37 U/L (10-36); POTASSIUM 2.7 mmol/L (3.5-5.1); SODIUM 144 mmol/L (136-145); TCO2 25 mmol/L (25-35); TOTAL BILIRUBIN 0.25 mg/dL (0.20-1.00); TOTAL PROTEIN 5.5 g/dL (6.3-8.3)
[2018-10-18 17:04] LABS: UR AMPHETAMINES QUAL NONE DETECTED (NONE DETECT); UR BARBITUATES QUAL NONE DETECTED (NONE DETECT); UR BENZODIAZEPIN QUAL NONE DETECTED (NONE DETECT); UR CANNABINOIDS QUAL NONE DETECTED (NONE DETECT); UR COCAINE QUAL NONE DETECTED (NONE DETECT); UR METHADONE QUAL NONE DETECTED (NONE DETECT); UR OPIATES QUAL PRESUMPTIVE POSITIVE (NONE DETECT); UR OXYCODONE QUAL NONE DETECTED (NONE DETECT); UR PCP QUAL NONE DETECTED (NONE DETECT)
[2018-10-18 17:56] LABS: ACETAMINOPHEN 5.1 ug/mL (10-30); SALICYLATES < 3.00 mg/dL (3-10)
[2018-10-18] MEDS ORDERED: NS 500 ML IV ONE (20:23)
[2018-10-18] MEDS ORDERED: NS + KCL 40 MEQ 1,000 ML IV SCH (20:30)
[2018-10-18] MEDS ORDERED: POTASSIUM CHLORIDE 60 MEQ in NS 500 ML IV ONE (20:33)
--- NOTE | 2018-10-18 20:54 | Diag Imaging Result Doc PS360 ---
EXAM: CHEST-PORTABLE 10/18/2018 HISTORY: AMS TECHNIQUE: AP portable at 2047 COMMENT: There is platelike atelectasis in the left base. The inspiration is less optimal than on 05/31/2018. Otherwise are has been no significant change. IMPRESSION: Left lower lobe atelectasis. Electronically signed by Fam Robertson 10/18/2018 8:52 PM
[2018-10-18 22:57] LABS: ALLEN TEST YES; BE 2.8 mmoll (-3.0-3.0); BLOOD TYPE ARTERIAL; HCO3-(ACT) 27.1 mmoll (20.0-26.0); METHB 0.9 % (0.0-1.5); MODALITY ROOM AIR; O2(CT) 16.5 mL/dL (15.0-23.0); O2HB 95.2 % (95.0-99.0); PCO2(98.6) 44 mmHg (35-45); PO2(98.6) 86 mmHg (60-100); SAMPLE BLOOD; SAO2 98.8 % (95.0-100.0); THB 12.3 g/dL (11.5-17.4); pH(98.6) 7.41 (7.35-7.45)
[2018-10-18] MEDS ORDERED: TYLENOL PR PRN (23:27)
[2018-10-18] MEDS ORDERED: NS 1,000 ML IV SCH (23:30)
[2018-10-18] MEDS ORDERED: PROTONIX IV SCH (23:30)
[2018-10-18] MEDS ORDERED: SODIUM CHLORIDE 0.9% INJ SCH (23:30)
[2018-10-19 00:27] LABS: URINE SOURCE CATH
[2018-10-19 00:35] LABS: BILIRUBIN URINE NEGATIVE (NEGATIVE); BLOOD URINE NEGATIVE (NEGATIVE); COLOR YELLOW; GLUCOSE URINE NEGATIVE (NEGATIVE); KETONE URINE NEGATIVE (NEGATIVE); LEUKOCYTES URINE NEGATIVE (NEGATIVE); NITRITE URINE NEGATIVE (NEGATIVE); PH URINE 6.5; PROTEIN URINE NEGATIVE (NEGATIVE); SP GRAVITY URINE 1.011; TURBIDITY URINE CLEAR (CLEAR); UROBILINOGEN URINE NORMAL (NORMAL)
[2018-10-19 00:38] LABS: UR EPITHELIAL CELLS <10 /HPF (<10); URINE BACTERIA NEGATIVE /HPF; URINE RBC <10 /HPF (<10); URINE WBC <10 /HPF (<10)
[2018-10-19] MEDS ORDERED: NARCAN IV PRN (01:38)
[2018-10-19] MEDS ORDERED: NS 250 ML IV ONE (02:48)
[2018-10-19] MEDS: NS 1,000 ML IV SCH ×3 (04:11→10:04)
[2018-10-19 07:12] LABS: BASO# 0.01 X1000 (0.0-0.2); BASO% 0.2 % (0.0-0.8); EOS% 1.7 % (0.0-10.0); HEMATOCRIT 42.1 % (37.0-47.0); HEMOGLOBIN 13.9 g/dL (12.0-16.0); LYMPH# 1.41 X1000 (1.2-3.4); LYMPH% 24.6 % (20.5-51.1); MCH 33.2 PG (27-31); MCV 100.5 FL (81-99); MPV 10.9 FL (7.4-10.4); NEUT# 3.81 X1000 (1.4-6.5); NEUT% 66.5 % (42.2-75.2); PLT 158 X1000 (130-400); RBC 4.19 XMIL (4.2-5.4); WBC 5.73 X1000 (4.8-10.8)
[2018-10-19 07:31] LABS: AGAP 12; ALB/GLOB RATIO 1.2; ALBUMIN 3.7 g/dL (3.5-5.0); ALKALINE PHOSPHATASE 120 U/L (32-104); BUN 3 mg/dL (8-22); CALCIUM 8.6 mg/dL (8.8-10.2); CHLORIDE 105 mmol/L (98-107); COSMO 282; CREATININE 0.3 mg/dL (0.5-0.9); ESTIMATED GFR > 60; GLUCOSE 112 mg/dL (70-104); GOT 42 U/L (10-30); GPT 38 U/L (10-36); MAGNESIUM 1.6 mg/dL (1.5-2.7); POTASSIUM 3.4 mmol/L (3.5-5.1); SODIUM 143 mmol/L (136-145); TCO2 26 mmol/L (25-35); TOTAL BILIRUBIN 0.48 mg/dL (0.20-1.00); TOTAL PROTEIN 6.8 g/dL (6.3-8.3)
[2018-10-19] MEDS: POTASSIUM CHLORIDE 20 MEQ/SWI 20 MEQ/100 ML IVPB IV SCH ×2 (08:44→10:09)
--- NOTE | 2018-10-19 10:03 | HISTORY AND PHYSICAL ---
PRIMARY CARE PROVIDER: Petr Cardenas MD PAIN MANAGEMENT PHYSICIAN: Dr. Garzon in [place]. DATE AND TIME: 10/18/2018 at 2100. CHIEF COMPLAINT: Altered mental status. HISTORY OF PRESENT ILLNESS: Ms. Pete is a 58-year-old female with a past medical history most notable for chronic liver disease, on lactulose at home, chronic back pain secondary to scoliosis, chronic pain management. The patient's spouse also states she receives epidurals for her chronic back pain on a regular basis. She does have frequent complications with encephalopathy. The patient's long- time boyfriend, Carlos Talamantes, was present at bedside during my examination. He does help take care of Ms. Pete. He states that since yesterday at approximately 4 p.m. in the afternoon on 10/17/2018 that patient had become progressively more confused. He states throughout the night and next day she did get to where he was unable to get her to respond and did call an ambulance and had her brought to the ER for further evaluation. He states that she has had medicines cause these complications before, though he denies her having any known intentions of harming herself. She states that he thinks that she accidentally may have taken too much of her medicine or due to her liver disease that her medications may be causing altered mental status. Her boyfriend states that she may have taken 3 of her 7.5 mg [place] today. He also reports that due to her previous stomach issues that she does have frequent nausea, vomiting, and has lost some weight over the past year and a half, from approximately around 130 pounds down to in the 90 pound range. He states that he is concerned that she is not receiving the full amount of nutritional supplementation that she needs. He does also report that she frequently complains of abdominal pain after she eats. Upon evaluation in the ER, the patient's initial vitals were heart rate 54, respirations 18, blood pressure 101/68 with oxygen saturation of 97% on room air. Throughout the time the patient was in the ER, she did kind of remain on the bradycardic side. Her heart rate was maintaining in the 50s and 40s. During this time, the patient was very drowsy, though she was responsive to tactile stimulation and once awoken, she would answer yes and no and was able to recognize her boyfriend at bedside, though could not tell us her name, where she was or what month it was. While she is awake, her heart rate is in the 70s and 80s, though as soon as she drifts back off to sleep, her heart rate does decline and maintains in the high 40s to 50s. She was given Narcan in the ER, which she did have positive response to and did become more alert, though is still drowsy. She was also found to be hypokalemic with a potassium of 2.7. This could be contributing to some of her bradycardia as well. Though her arterial blood gases were pretty unremarkable, she was not hypoxic. She does have some slightly elevated liver function tests, though CK and troponin were negative. EKG showed sinus bradycardia at a rate of 46 with QTC of 463. At this time, the patient will be admitted to ICU for further treatment and evaluation. PAST MEDICAL HISTORY: 1. Frequent complications with encephalopathy which would have to be likely toxic or metabolic. 2. History of frequent urinary tract infections. 3. Opioid overdoses in the past which were noted so far to be not intentional, they were noted to be possibly secondary to her gastrointestinal problems, possible digestion/absorption and her liver disease. 4. Chronic pain syndrome due to severe scoliosis. 5. Gastroesophageal reflux disease. 6. Hypertension. 7. Hyperlipidemia. 8. Gastroparesis. 9. Chronic liver disease. 10. COPD. PAST SURGICAL HISTORY: 1. Cholecystectomy. 2. Perforated gastric ulcer that required surgical intervention. 3. Gastric bypass surgery. SOCIAL HISTORY: The patient smokes 1/2 pack of cigarettes a day and has done so for at least 15 years. Her boyfriend of greater than 10 years is at bedside and does help take care of her. There is no known history alcohol or illicit drug use. FAMILY HISTORY: Positive for diabetes mellitus and lung cancer. ALLERGIES: The patient has allergies to Phenergan with reported allergy of hallucinations. HOME MEDICATIONS: 1. Norvasc 5 mg p.o. daily. 2. Baclofen 10 mg p.o. b.i.d. 3. Dulcolax suppository 10 mg per rectum b.i.d. 4. Catapres 0.1 mg p.o. daily. 5. Gabapentin 600 mg p.o. t.i.d. 6. Lactulose 30 mL p.o. b.i.d. 7. Cozaar 10 mg p.o. daily. 8. Melatonin 5 mg p.o. nightly at bedtime. 9. Lopressor 12.5 mg p.o. b.i.d. 10. Omeprazole 40 mg p.o. b.i.d. 11. Carafate liquid 1 g p.o. q.6 hours. DIAGNOSTIC DATA: White blood cell count is 7580, hemoglobin 11.6, hematocrit 35.5, platelet count 165. PT is 12.7, INR is 0.95, PTT is 27.9. Sodium 144, potassium 2.7, chloride 108, serum bicarb is 25, BUN s 9, creatinine 0.6, glucose 113, calcium 8.5, magnesium 1.9. Total bilirubin is 0.25, AST is 45, ALT is 37, alkaline phosphatase 107, ammonia is 36. CK is 24. Troponin less than 0.01. Serum alcohol is 0. Salicylate level was less than 3. Acetaminophen level on initial draw was 5.1 with a repeat of 1.9. Arterial blood gases were within normal limits except for HCO3 was slightly elevated at 2.7 and carboxyhemoglobin was elevated at 2.6. The pH was 7.41, pCO2 was 44, pO2 was 86 with an O2 saturation of 98.8 on room air. Urinalysis was obtained via catheter and was negative for protein, glucose, ketones, blood, nitrites, leukocytes, white blood cells, or bacteria. EKG showed sinus bradycardia with a rate of 46, QTC of 463. CT of the head showed no evidence of acute intracranial disease. Chest x-ray showed left lower lobe atelectasis. When compared to previous x-ray in 06/2018, there has been no significant change. PHYSICAL EXAMINATION: VITAL SIGNS: Temperature 98.1, heart rate 44, respirations 12, blood pressure 150/92, oxygen saturation is 100% on room air. GENERAL: Ms. Pete is a 58-year-old female. She was resting in the ER stretcher. She was arousable with tactile stimulation. Once awoken, she would answer yes to some questions and did recognize and was able to tell us her boyfriend's name at bedside, though could not tell us her name, where she was at or what month it was. HEENT: Head is atraumatic and normocephalic. Pupils are equal, round and reactive to light, were 4 to 5 mm bilaterally and slightly sluggish. Oral mucosa is moist. NECK: Supple. Trachea midline. CARDIOVASCULAR: The patient has S1, S2 present. No murmurs, gallops, rubs appreciated, with a bradycardic rate that is regular. PULMONARY: The patient has symmetrical chest expansion bilaterally. Lung sounds are clear to auscultation in bilateral full wilson. ABDOMEN: Soft, nondistended. There is no facial grimacing, guarding, or localization of pain upon palpation. Bowel sounds are present, were slightly hypoactive. EXTREMITIES: No cyanosis or edema noted. The patient is able to move all extremities. Radial pulses were 2+ bilaterally. Pedal pulses were slightly difficult to palpate. They were easily obtainable with a venous Doppler. Capillary refill is less than 3. INTEGUMENTARY: The patient's skin is pink, warm, and dry. NEUROLOGIC: The patient s resting in the ER stretcher. She is arousable with tactile stimulation, though once awoken, she is only able to answer yes to some questions. She was able to recognize and state her boyfriend's name at bedside, though could not tell us her name, where she was at or what month it was. She is able to move all extremities, though at this time her neurological exam is limited. ASSESSMENT AND PLAN: 1. Encephalopathy. This could be multifactorial. This may be a combination of hepatic and toxic in nature. The patient does take medications that could have affected neurological status, which include [place] pain medication as well as baclofen and gabapentin. The patient's CT of the head was negative for any acute intracranial abnormalities. We will continue to follow this closely. The patient does have a positive response to Narcan when given. This may be secondary to possible opiate overdose. At this time, her boyfriend states he believes this was accidental, though once the patient's mentation has improved, we will need to rule out possible intentional overdose as well. She will be placed in the ICU for close monitoring and will have frequent vital signs and neuro checks. We will implement aspiration precautions as well and will continue following. 2. Hypokalemia. We have placed orders for the patient to receive IV potassium replacement. We will recheck a CMP and magnesium in the morning. 3. Some mild bradycardia. The patient's heart rate has been dipping into the 40s. This could be a combination of possible side effects from possible overdose and could be secondary to her hypokalemia. The patient is maintaining adequate blood pressure at this time. Though she is drowsy, she is responsive to tactile stimulation, though does drift right back off the sleep. We will continue to monitor this closely. CK and troponin ere negative. EKG showed sinus bradycardia. 4. Chronic liver disease. Once the patient becomes more awake and is able to tolerate oral medications, we will continue her regularly prescribed medicines for this. 5. History chronic pain on chronic narcotic pain control as well as the patient has received reportedly epidural injections as well. 6. DVT prophylaxis will be provided with SCDs. The patient has been placed in the ICU for close monitoring. We will repeat a CBC, CMP and magnesium in the morning. Her boyfriend did mention that she has had skilled nursing complications with nausea and vomiting and secondary to this has poor oral intake and has lost some weight, approximately 30 pounds in the last year and a half. He is concerned that she is not meeting her nutritional requirements. The patient may need Gastroenterology consult or followup given these symptoms as well as she may need a possible Nutritional consult as well. Her boyfriend states that she has seen Dr. Dockery in the past for her gastric ulcers and liver disease. Further orders and recommendations pending hospital course, diagnostic studies and physician evaluation. Dictated by JAYESH Lake for Andrew Vargas MD I have performed a face to face diagnostic evaluation. Labs/ Imaging - reviewed. Exam- Neuro- altered. A/P- AMS, drug overdose, Hypokalemia- Admit, Neuro checks, supportive care, replace electrolytes. Dr. Vargas cc: Andrew Vargas MD [facility]
[2018-10-19] MEDS: NORVASC PO SCH (10:04)
[2018-10-19] MEDS: COZAAR PO SCH (10:04)
[2018-10-19] MEDS: PRILOSEC PO SCH ×2 (10:04→23:28)
[2018-10-19] MEDS: LOPRESSOR PO SCH ×2 (10:05→23:28)
[2018-10-19] MEDS: ZOFRAN IV PRN ×2 (11:37→15:43)
--- NOTE | 2018-10-19 13:34 | PROGRESS NOTE ---
DATE: 10/19/2018 INTERVAL HISTORY: The patient is still quite somnolent, but beginning to wake up. Answering some questions. Following some commands. No acute events overnight. Did discuss her home drug regimen with patient's . He keeps fairly close track of her home [place]. Based on his pill counts, she likely could not have taken more than 2. He is less certain about the gabapentin and baclofen. Clarified that she is not currently taking the Dulcolax suppositories. She is taking 2 to 3 large doses of lactulose a day and has been having 4+ bowel movements, so that is likely a bit much. REVIEW OF SYSTEMS: Unable to obtain secondary to patient's mental status. LABORATORY DATA: WBC 5.7, hemoglobin 13.9, hematocrit 42.1, platelets 158,000. Sodium 143, potassium 3.4, BUN 3, creatinine 0.3, glucose 112-117, AST 42, ALT 38, alkaline phosphatase 120. VITAL SIGNS: Temperature 98.7 degrees, pulse 74, respirations 18, blood pressure 175/109, O2 saturation 98% on room air. PHYSICAL EXAMINATION: General: No acute distress. Chronically ill-appearing. Vitals: As above. HEENT: Normocephalic, atraumatic. Muscle wasting noted. Cardiovascular: Regular rate and rhythm. No rubs noted. Pulmonary: Largely clear to auscultation bilaterally. Abdomen: Soft, nontender, nondistended. Bowel sounds positive. Extremities: Peripheral pulses decreased but intact. No clubbing or cyanosis. Neurologic: Exam somewhat limited by patient's somnolence, but pupils equal, round, and reactive to light. Tracks to all quadrants. Moving all extremities. Globally weak. Psychiatric: Patient rousing, but remains quite somnolent. Falls asleep during conversation. With repeated questioning, does answer most questions, but only intermittently appropriately. Follows commands if you can keep her awake. Skin: No new rashes or lesions identified. ASSESSMENT AND PLAN: 1. Encephalopathy, likely combination of metabolic encephalopathy secondary to her liver disease. May also have an aspect of toxic encephalopathy related to her home sedating medications. Based on 's pill count, unlikely that she took a significant amount of [place], but he is less certain about her home gabapentin and baclofen, which she may have accidentally taken an extra dose of. She does appear to be coming around fairly quickly, although remains quite somnolent and somewhat confused. We will get her back on her home lactulose, check ammonia level, and hold her other home sedating medications until she begins to come around further. Since she is beginning to wake up and does not appear to be at major risk of a severe adverse event, we will go ahead and move her to the floor. 2. Hypokalemia, improving with repletion, but still low. We will give further potassium and monitor. 3. Chronic liver disease, cirrhosis. We will restart her home lactulose. Check ammonia as above. Mild transaminitis on labs, but overall fairly similar to what she has had in the past. Bilirubin okay. 4. Chronic pain. Holding home [place] for now as above. We will restart at low dose once she is fully awake and aware. 5. Peptic ulcer disease. Continue PPI. 6. Hypertension. Blood pressure fairly elevated, so we will go and restart some of her home medications. DISPOSITION: If patient continues to wake up and is doing well, may be able to discharge home tomorrow with some medication adjustments.
[2018-10-19] MEDS ORDERED: APRESOLINE IV PRN (14:23)
[2018-10-19] MEDS ORDERED: LACTULOSE PO SCH (21:00)
[2018-10-20] MEDS: ZOFRAN IV PRN ×2 (03:55→08:38)
[2018-10-20] MEDS: PRILOSEC PO SCH ×3 (07:46→21:37)
[2018-10-20] MEDS: LOPRESSOR PO SCH ×3 (07:47→20:50)
[2018-10-20] MEDS: LACTULOSE PO SCH ×3 (07:47→20:50)
[2018-10-20] MEDS: NORVASC PO SCH (10:32)
[2018-10-20] MEDS: COZAAR PO SCH (10:32)
[2018-10-20] MEDS ORDERED: PHENERGAN PR PRN (11:44)
[2018-10-20] MEDS ORDERED: APRESOLINE IV PRN (11:46)
[2018-10-20 11:58] LABS: BASO# 0.01 X1000 (0.0-0.2); BASO% 0.1 % (0.0-0.8); EOS# 0.01 X1000 (0.0-0.7); EOS% 0.1 % (0.0-10.0); HEMATOCRIT 47.7 % (37.0-47.0); HEMOGLOBIN 16.1 g/dL (12.0-16.0); IMM GRAN# 0.02 X1000 (0.0-0.04); IMM GRAN% 0.2 % (0.0-0.5); LYMPH# 0.93 X1000 (1.2-3.4); LYMPH% 11.3 % (20.5-51.1); MCH 32.7 PG (27-31); MCHC 33.8 g/dL (33-37); MONO# 0.65 X1000 (0.11-0.59); MONO% 7.9 % (1.7-9.3); MPV 11.4 FL (7.4-10.4); NEUT% 80.4 % (42.2-75.2); PLT 257 X1000 (130-400); RBC 4.92 XMIL (4.2-5.4); RDW 16.2 % (11.5-14.5); WBC 8.22 X1000 (4.8-10.8)
[2018-10-20] MEDS ORDERED: NS 1,000 ML ONE (12:09)
[2018-10-20] MEDS: NS 1,000 ML IV SCH (12:16)
[2018-10-20 12:22] LABS: AGAP 16; BUN 8 mg/dL (8-22); CALCIUM 10.2 mg/dL (8.8-10.2); CHLORIDE 100 mmol/L (98-107); COSMO 282; CREATININE 0.4 mg/dL (0.5-0.9); ESTIMATED GFR > 60; GLUCOSE 135 mg/dL (70-104); SODIUM 141 mmol/L (136-145); TCO2 25 mmol/L (25-35)
[2018-10-20] MEDS: COMPAZINE IV PRN ×2 (12:24→21:31)
--- NOTE | 2018-10-20 15:13 | PROGRESS NOTE ---
DATE: 10/20/2018 INTERVAL HISTORY: The patient waking up well, but with significant nausea and vomiting this morning. Difficulty keeping down any medications. Given Zofran with modest improvement but still some fairly significant nausea. No other acute events overnight. No other new complaints. REVIEW OF SYSTEMS: Twelve point review of systems negative except as per interval history. LABS: WBC 8.2, hemoglobin 16.1, hematocrit 47.7, platelets 257,000. Sodium 141, potassium 4, BUN 8, creatinine 0.4, glucose 123, ammonia 50. VITAL SIGNS: T-max 98.8, pulse 86, respirations 18, blood pressure 185/106, O2 saturation 90% on 2 L by nasal cannula. PHYSICAL EXAMINATION: General: No acute distress. Chronically ill appearing. Vital signs: As above. HEENT: Normocephalic, atraumatic. Moist mucous membranes. Muscle wasting noted. Cardiovascular: Regular rate and rhythm. No murmurs, rubs, or gallops noted. Pulmonary: Largely clear to auscultation bilaterally. No wheezing. Abdomen: Soft, nontender, nondistended. Bowel sounds positive. Extremities: Peripheral pulses decreased but present. No clubbing or cyanosis. Neurologic: Cranial nerves grossly intact. No focal deficits identified. Psychiatric: Patient awake and alert. Responses very slow but appropriate. Oriented x3. Skin: No new rashes or lesions identified. ASSESSMENT AND PLAN: 1. Toxic metabolic encephalopathy. Likely combination of metabolic encephalopathy related to her liver disease and toxic encephalopathy related to her sedating medications, primarily gabapentin and baclofen, although [place] may have been contributing. The patient keeps a close count on her number of [place] pills and states that she could have taken no more than 2 the day prior to admission. Ammonia within normal limits. The patient is waking up well, although she remains slow. Continue holding sedating medications. 2. Nausea and vomiting. Etiology uncertain but the patient and say that she has episodes of nausea frequently at home. Some improvement with Zofran but still finding it difficult to keep down medications. We will go and give her some Compazine as well and see if this improves things. 3. Hypokalemia. Improved with repletion. Monitor. 4. Hypertension. Blood pressure fairly elevated this morning since she has not been able to take her home medications. We will see if she can take her medications after antinausea medication and we will also go ahead and add some p.r.n. hydralazine. 5. Chronic liver disease, cirrhosis. Restart home lactulose. Monitor. 6. Peptic ulcer disease. Continue PPI. DISPOSITION: Patient waking up well. If nausea can be controlled and blood pressure is not too bad, then can hopefully be discharged tomorrow.
[2018-10-20] MEDS: NORCO-5 PO PRN ×2 (15:44→21:32)
[2018-10-20] MEDS: HYDROCHLOROTHIAZIDE PO SCH (15:51)
[2018-10-21] MEDS: NS 1,000 ML IV SCH (02:30)
[2018-10-21] MEDS: NORCO-5 PO PRN ×2 (04:50→10:19)
[2018-10-21] MEDS: PRILOSEC PO SCH (07:42)
[2018-10-21] MEDS: LOPRESSOR PO SCH (10:19)
[2018-10-21] MEDS: HYDROCHLOROTHIAZIDE PO SCH (10:19)
[2018-10-21] MEDS: COZAAR PO SCH (10:19)
[2018-10-21] MEDS: LACTULOSE PO SCH (10:20)
[2018-10-21] MEDS: NORVASC PO SCH (10:20)
[2018-10-21 12:03] VITALS: BP 141/95
[2018-10-21] MEDS: ZOFRAN IV PRN (12:04)
--- NOTE | 2018-10-21 14:55 | DISCHARGE SUMMARY ---
ADMISSION DATE: 10/18/2018 DISCHARGE DATE: 10/21/2018 ADMISSION DIAGNOSES: 1. Encephalopathy multifactorial. 2. Hypokalemia. 3. Some mild bradycardia. 4. Chronic liver disease. 5. History of chronic pain on chronic narcotic pain medications. DISCHARGE DIAGNOSES: 1. Toxic metabolic encephalopathy. 2. Nausea, vomiting. 3. Hypokalemia. 4. Hypertension. 5. Chronic liver disease with cirrhosis. 6. Peptic ulcer disease. CONSULTATIONS: None. SURGERIES AND PROCEDURES: None. HOSPITAL COURSE: On 10/18/2018, Ms. Pennie Pete presented to the emergency department, was admitted on 10/19/2018. She was admitted for altered mental status with a significant history of chronic liver disease with lactulose use at home. Has chronic back pain secondary to scoliosis, so also receives chronic pain medications. Apparently she has chronic bouts of encephalopathy. The patient's long-term significant other is present at bedside during the examination and answer most questions. Apparently, she had become more confused over the last 12 hours prior to admit and was brought in by ambulance to the emergency department. The patient actually stated that she thinks she accidentally may have taken too much of her medication on top of her liver disease causing her altered mental status. Apparently she had taken 3 of her 7.5 mg [place] that day. Also had complaints of nausea and vomiting, weight loss of around 90 pounds, abdominal pain after eating. A little bradycardic on telemetry when she arrived. Sometimes it dropped down to the 40s. Blood pressure was stable with that. She was in and out of sleep, given Narcan with response but still drowsy. Potassium was low at 2.7; got supplementation for that. She was transferred to the ICU for closer observation. Several medications withheld. Potassium was replaced. Bradycardia monitored. Ammonia level normal at 36 and up to 50 on the 20 of October. She has continued her lactulose. Still has some nausea and vomiting. A little weak prior to discharge but insisted on going home. Nausea improved and was deemed appropriate for discharge home. VITAL SIGNS: Temperature 97.7 degrees, heart rate 82, respiratory rate 15, blood pressure 141/95, O2 saturation 96% on room air. DISCHARGE LAB DATA: On the 20 of October: White blood cells 8000, hemoglobin 16, hematocrit 47, platelet count 257,000. Sodium 141, potassium 4.0, BUN 8, creatinine 0.4, glucose 135, calcium 10.2, ammonia 50. Also lab [place], she did have an elevated Tylenol level on presentation along with positive opiates. PERTINENT IMAGING: Head CT on admit: No acute findings. Chest x-ray: Left lower lobe atelectasis. EKG: Sinus bradycardia, rate 46. QTc was 463. DISCHARGE MEDICATIONS: 1. Carafate 1 g p.o. every 6 hours. 2. Cozaar 100 mg p.o. daily. 3. Potassium chloride 10 mEq p.o. daily. 4. Norvasc 5 mg p.o. daily. 5. Melatonin 5 mg p.o. nightly. 6. Bisacodyl suppository per rectum twice daily. 7. Hydrochlorothiazide 25 mg p.o. daily. 8. Lactulose 30 mg p.o. twice daily. 9. Metoprolol 12.5 mg p.o. twice daily. 10. Omeprazole 40 mg p.o. twice daily. DISCHARGE DIET: Regular. DISCHARGE ACTIVITY: As tolerated. DISCHARGE PHYSICIAN FOLLOWUP: Dr. Cardenas on 10/29/2018 at 11:15 a.m. DISCHARGE INSTRUCTIONS: For fever of 101 or above, nausea, vomiting, chest pain, shortness of breath, worsening symptoms or other concerns, please notify MD. If your condition changes, contact physician and/or return to the emergency department. Changes may include, but not limited to, shortness of breath, increased fatigue, excessive bleeding, unexplained weight loss or gain, unmanageable pain, signs or symptoms of infection. DISCHARGE DISPOSITION: Home. Dictated by JAYESH Andersen for Imtiaz Villarreal MD cc: JAYESH Andersen Agree with the above. the following is my own face to face assessment. patient with cirrhosis. presented with encephalopathy. likely multifactorial with polypharmacy(opiate, gabapentin, muscle relaxer). placed on her home lactulose and held sedating medications with resolution of encephalopathy. discussed with patient and about minimizing sedation as much as possible. also discussed titration of lactulose as he reported that she sometimes had 5-6 bowel movements/day. patient remains slightly weak on exam so we discussed that possibility of rehab placement but patient was adamantly opposed. [facility]
== END 2018-10-21 15:15 | disposition home or self-care (01) | DRG 917 ==
LOC: SUPCPDRO → ED 14:49 → ICU 22:24 → SUATTDRO 22:24 → 4N 10-19 17:40
PROVIDERS: ATTEND Internal Medicine